=== PATIENT | male | born 1965 | race Caucasian/White ===

== ENCOUNTER 2016-05-27 23:44 | Emergency (ER) | payer MEDICAID ==
[~2016-05-27] VITALS: Ht 167.6 cm; Wt 70.8 kg
[~2016-05-27 23:44] MED LIST: CLON0.1T PO; METH10TA2 PO
[2016-05-27 23:52] VITALS: BP 137/85
== END 2016-05-28 02:15 | disposition home or self-care (01) ==
LOC: ER 23:50
DX: S01.112A Laceration without foreign body of left eyelid and periocular area, initial encounter (principal); S02.30XA Fracture of orbital floor, unspecified side, initial encounter for closed fracture; S09.90XA Unspecified injury of head, initial encounter; I10 Essential (primary) hypertension; B19.20 Unspecified viral hepatitis C without hepatic coma; F17.200 Nicotine dependence, unspecified, uncomplicated; V18.5XXA Pedal cycle passenger injured in noncollision transport accident in traffic accident, initial encounter; Y93.89 Activity, other specified; Y92.89 Other specified places as the place of occurrence of the external cause; Y99.8 Other external cause status
CPT/HCPCS: 12011; 70450; 70486; 99284; A4606; Z7610

== ENCOUNTER 2016-06-20 22:02 | Emergency (ER) | payer MEDICAID ==
[~2016-06-20] VITALS: Ht 175.3 cm; Wt 71.7 kg
[2016-06-20 22:26] VITALS: BP 136/86
== END 2016-06-20 22:50 | disposition left against medical advice (07) ==
LOC: ER 22:07
DX: Z53.21 Procedure and treatment not carried out due to patient leaving prior to being seen by health care provider (principal)
CPT/HCPCS: A4606; Z7610

== ENCOUNTER 2016-06-26 13:03 | Emergency (ER) | payer MEDICAID ==
[~2016-06-26] VITALS: Ht 165.1 cm; Wt 74.8 kg
[2016-06-26 13:24] VITALS: BP 165/88
[2016-06-26] MEDS ORDERED: CEPHALEXIN MONOHYDRATE 500 MG CAPSULE PO ONE ×2 (16:00→16:10)
[2016-06-26] MEDS ORDERED: SULFAMETH/TRIMETH 800/160 MG 1 UDTAB TABLET PO ONE ×2 (16:00→16:09)
[2016-06-26] MEDS ORDERED: HYDROCODONE/APAP 5/325MG 1 EACH TABLET PO ONE (16:00)
[2016-06-26] MEDS ORDERED: IBUPROFEN 600 MG TABLET PO ONE ×2 (16:00→16:10)
[2016-06-26] MEDS ORDERED: HYDROCODONE/APAP 5/325MG 1 EACH TABLET ONE (16:10)
== END 2016-06-26 17:56 | disposition home or self-care (01) ==
LOC: ER 13:06
DX: L03.116 Cellulitis of left lower limb (principal); F17.200 Nicotine dependence, unspecified, uncomplicated; B19.20 Unspecified viral hepatitis C without hepatic coma; Z59.0 Homelessness
CPT/HCPCS: 73590; 99284; A4606; Z7610

== ENCOUNTER 2016-10-23 19:34 | Inpatient (IN) | payer MEDICAID, OTHER ==
[~2016-10-23] VITALS: Ht 175.3 cm; Wt 68.5 kg
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
[2016-10-23] MEDS ORDERED: TDAP [DIPH/PERTUSSIS/TET] 0.5 ML VIAL IM ONE ×2 (19:49→20:00)
--- NOTE | 2016-10-23 19:55 | NUR ---
[employer] - OFFICER SHAW. ARRIVED AND IS SPEAKING TO THE PT.
--- NOTE | 2016-10-23 19:55 | NUR ---
PT LEFT FOR CT.
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
--- NOTE | 2016-10-23 20:13 | NUR ---
PT RETURNED FROM CT. UNABLE TO GET CT. PT THREATENED RADIOLOGY STAFF AND PULLED OFF BLOODY DRESSING AND THREATENED TO THROW BLOODY DRESSING AT RADIOLOGY STAFF.
--- NOTE | 2016-10-23 20:13 | NUR ---
LELE ROJASD AT THE BEDSIDE SPEAKING TO THE PT.
[2016-10-23] MEDS ORDERED: LORAZEPAM INJ 2 MG/ML VIAL ONE (20:14)
--- NOTE | 2016-10-23 20:18 | NUR ---
PT REC'D PRAFUL HASKINSP.
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
--- NOTE | 2016-10-23 20:20 | NUR ---
PT LEFT FOR CT VIA ODILIA WITH MYSELF AND MARY ANN VENTURA. PT IS CALM AND COOPERATIVE.
[2016-10-23 20:23] LABS: BASOPHILS # (AUTO) 0.2 /CMM (0.0-0.2); EOSINOPHILS # (AUTO) 0.1 /CMM (0.0-0.7); EOSINOPHILS % (AUTO) 1.4 % (0.0-6.0); HEMATOCRIT 39 % (39-51); HEMOGLOBIN 12.8 g/dL (13.5-17.5); LYMPHOCYTES # (AUTO) 3.5 /CMM (0.8-4.8); LYMPHOCYTES % (AUTO) 40.6 % (20.0-44.0); MEAN CORPUSCULAR HEMOGLOBIN 31 PG (26.0-33.0); MEAN CORPUSCULAR HGB CONC 33 g/dl (31.0-36.0); MEAN CORPUSCULAR VOLUME 94 fL (80-96); MONOCYTES # (AUTO) 0.8 /CMM (0.1-1.30); MONOCYTES % (AUTO) 9.7 % (2.0-12.0); NEUTROPHILS # (AUTO) 4.1 /CMM (1.8-8.9); NEUTROPHILS % (AUTO) 46.3 % (43.0-81.0); PLATELET COUNT (AUTO) 235 /CMM (150-450); RDW COEFFICIENT OF VARIATION 14.5 (11.5-15.0); RED BLOOD CELL COUNT(AUTO) 4.11 MIL/uL (4.5-6.0); WHITE BLOOD COUNT (AUTO) 8.7 K/uL (4.3-11.0)
[2016-10-23] MEDS ORDERED: LORAZEPAM INJ 2 MG/ML VIAL IV ONE (20:30)
[2016-10-23 20:31] LABS: CREATININE 0.7 mg/dL (0.6-1.3); POTASSIUM 3.5 mmol/L (3.5-5.1)
[2016-10-23 20:34] LABS: INR 1.13 (0.87-1.13); PROTHROMBIN TIME 11.9 SECS (9.5-12.7)
--- NOTE | 2016-10-23 20:41 | NUR ---
Emmie wagner in ED - 10/23/16 at 2045 by DIANELYS ENDORSED 4TH BAG OF POTASSIUM 10 MEQ TO LASHON SANCHEZ.
--- NOTE | 2016-10-23 20:41 | NUR ---
PT RETURNED FROM CT. PT CONNECTED TO THE MONITOR AND CONTINUOUS PULSE OX.
--- NOTE | 2016-10-23 20:43 | NUR ---
CT SCANS & XRAY WAS ABLE TO BE DONE AFTER ER GAVE PT MEDS. LASHON GARCIA & NACHO WAS ON HAND IN CT ROOM WELL.
[2016-10-23] MEDS ORDERED: LIDOCAINE 2%-EPI 1:100,000 30 ML VIAL ONE (20:44)
--- NOTE | 2016-10-23 20:50 | NUR ---
M DEGRASSE, ACNP IS AT THE BEDSIDE SUTURING.
--- NOTE | 2016-10-23 21:00 | NUR ---
PT'S O2 SAT DROPPED TO 87% PT PLACED ON 2L VIA NC. PT IS OBTUNED. RT CALLED. DR. BARR AT THE BEDSIDE.
--- NOTE | 2016-10-23 21:02 | NUR ---
SETTING UP FOR INTUBATION: DR. BARR AND Shanique SINGER, ACNP AT BEDSIDE. VS: 95 99% 131/75 18. PT IS ON 2L O2 VIA NC. 2103 BP- 126/82 HR - 99 O2 SAT- 98% ETOMIDATE 10 IVP - IV INFILTRATED. 5MG IN 2104 - BAGGING. 2105 IV STARTED IN RAC 18G 5MG ETOMIDATE IN IVP INTUBATING PT: 2106 HR-106 BP-126/82 R- 18 O2 - 99% ON 2L O2 VIA NC. 2107 - 10 MG ETOMIDATE IVP RAC 18G. BAGGING IN PROCESS 2108 - INTUBATING PT BP- 156/109 HR- 114 PT IS GAGGING. INTUBATION STOPPED. 2109 - PT INTUBATED. ETT 7.5 AND 25 AT THE LIP. POS COLOR CHANGE.
[2016-10-23] MEDS ORDERED: IV NS 0.9% 1,000 ML ONE ×2 (21:07→23:24)
[2016-10-23] MEDS ORDERED: IV SET PRIMARY PUMP SET 1 EA INFUS.SET MC ONE ×3 (21:07→23:25)
[2016-10-23] MEDS ORDERED: IV SET PRIMARY 1 EA INFUS.SET MC ONE (21:07)
[2016-10-23] MEDS ORDERED: PROPOFOL 100 ML IV ONE (21:07)
--- NOTE | 2016-10-23 21:14 | NUR ---
PT IS INTUBATED AND ON VENT WITH THE FOLLOWING SETTINGS: AC 12, TV 500, FIO2 100% PEEP 5.
--- NOTE | 2016-10-23 21:18 | NUR ---
M DEGRASSE, ACNP SUTURING.
--- NOTE | 2016-10-23 21:23 | NUR ---
PROPOFOL INCREASED TO 20 MCG/MIN.
--- NOTE | 2016-10-23 21:24 | NUR ---
CALLED , TRANSFERRED CALL TO
--- NOTE | 2016-10-23 21:28 | NUR ---
DR. BARR IS AT THE BEDSIDE WITH FLORENTIN ESTRADA.
--- NOTE | 2016-10-23 21:28 | NUR ---
M DEGRASSE, ACNP STILL SUTURING. LAC STILL BLEEDING.
--- NOTE | 2016-10-23 21:36 | NUR ---
CALLED NURSING SUP. FOR ICU BED
--- NOTE | 2016-10-23 21:42 | NUR ---
PT IS SUTURED. BLEEDING STOPPED.
[2016-10-23 21:43] VITALS: BP 118/72
--- NOTE | 2016-10-23 21:43 | NUR ---
PROPOFOL INCREASED TO 25MCG/MIN.
--- NOTE | 2016-10-23 21:46 | NUR ---
RT NOTE PT INTUBATED PER MD ORDER. 7.5 ETT 25 @ LIP. SETTINGS PRESCRIBED. BILATERAL CHEST RISE NOTED. VENT ALARMS SET PER PROTOCOL AND AUDIBLE. AMBU BAG AT BED SIDE. VENT PLUGGED IN TO RED OUTLET. PT SEDATED. NO DISTRESS NOTED. WILL CONTINUE TO MONITOR. Addendum: 10/23/16 at 2149 by NÉSTOR HANSON RT Amended: Links added.
--- NOTE | 2016-10-23 21:47 | NUR ---
STEWART CATH INSERTED.
--- NOTE | 2016-10-23 21:50 | NUR ---
URINE SAMPLE SENT TO LAB.
--- NOTE | 2016-10-23 21:58 | NUR ---
TAYLA PAGED, ABDIFATAH PEREZ TAP OUT OPERATOR
--- NOTE | 2016-10-23 22:20 | NUR ---
CALL NO [employer] WHEN PT IS AWAKE. CALL [phone]. ASK FOR OFFICER CARVER BEFORE 5PM.
--- NOTE | 2016-10-23 22:23 | NUR ---
IF PT'S STATUS CHANGES PLEASE CALL [employer].
[2016-10-23] MEDS ORDERED: PROPOFOL 100 ML IV PRN (22:30)
[2016-10-23] MEDS ORDERED: CEFAZOLIN 1 GM in IV D5W 50 ML IV ONE (22:30)
--- NOTE | 2016-10-23 22:35 | NUR ---
AUDITOR/QUALITY: RECEIVED ORALLY INTUBATED PT FROM ER VIA GURNEY. TOLERATING VENT SETTINGS ORDERED WT NO ACUTE DISTRESS. SEDATED ON DIPRIVAN AT 30MCG/KG/MIN WT BILAT. SOFT WRIST RESTRAINTS IN PLACE TO PREVENT POSSIBLE SELF-EXTUBATION. IV SITES INTACT AND PATENT WT NO INFILTRATION. NO EVIDENCE OF DISCOMFORT. PRESSURE DRESSING IN PLACE ON RIGHT EYEBROW LACERATION WT NO ACTIVE BLEEDING. UNABLE TO ASSESS RIGHT EYE/PUPIL DUE TO HEAD DRESSING. SR ON MONITOR. F/C PATENT AND INTACT DRAINING TEA COLORED URINE TO GRAVITY. HOB ELEVATED. SAFETY PRECAUTION NOTED.
--- NOTE | 2016-10-23 22:48 | NUR ---
ANCEF ENDORSED TO ICU NURSE. PT ALREADY IN ICU WHEN ANCEF WAS ORDERED.
[2016-10-23 23:00] VITALS: BP 131/86
[2016-10-23] MEDS ORDERED: ETOMIDATE 2 MG/ML VIAL IV ONE (23:00)
[2016-10-23 23:01] VITALS: BP 86/80
--- NOTE | 2016-10-23 23:04 | NUR ---
Received pt from ER intubated 7.5 T TUBE AND TAPED AT 24CM AT THE LIP, current setting are AC,12,500,+5,100%, VENT IS PLUGED INTO RED OUTLET, ALARMS ARE SET AND AUDIBLE, AMBUBAG AT BEDSIDE. Addendum: 10/23/16 at 2307 by LUISITO BOLDEN RT Amended: Links added.
[2016-10-23] MEDS ORDERED: SECONDARY IV SET 1 EA INFUS.SET MC ONE ×2 (23:06→23:35)
[2016-10-23] MEDS ORDERED: CEFAZOLIN 1 GM ONE (23:06)
[2016-10-23] MEDS ORDERED: IV D5W 50 ML IV ONE (23:06)
[2016-10-23] MEDS ORDERED: IV NS 0.9% 250 ML IV ONE (23:07)
[2016-10-23] MEDS ORDERED: IV NS 0.9% 1,000 ML IV PRN (23:14)
[2016-10-23 23:22] LABS: ABG BASE EXCESS -2.6 mmol/L; ABG OXYGEN SATURATION 99.4 % (92.0-98.5); ABG PCO2 57.9 mmHg (35.0-45.0); ABG PH 7.257 (7.350-7.450); ABG PO2 512.5 mmHg (75.0-100.0); AaDO2 142.6 mmHg; COHb 0.2 % (0.5-1.5); MetHb 0.5 % (0.0-1.5); O2Hb 98.7 % (94.0-97.0); SITE, ABG Right Radial
[2016-10-23 23:30] VITALS: BP 118/75
[2016-10-23] MEDS ORDERED: ACETAMINOPHEN 650 MG/SUPP.RECT RC PRN (23:30)
[2016-10-23] MEDS ORDERED: IV NS 0.9% 250 ML IV PRN (23:30)
[2016-10-23] MEDS ORDERED: ONDANSETRON HCL/PF 4 MG/2 ML VIAL IVP PRN (23:30)
[2016-10-23] MEDS ORDERED: MORPHINE SULFATE INJ 2 MG/ML DISP.SYRIN IV PRN (23:30)
[2016-10-23] MEDS: PROPOFOL 100 ML IV PRN (23:31)
[2016-10-23] MEDS ORDERED: IV D5W 100 ML IV ONE ×2 (23:33→23:35)
[2016-10-24] VITALS (30 sets, daily range): BP systolic 86–166; BP diastolic 70–102
[2016-10-24] MEDS ORDERED: CEFTRIAXONE 2 G VIAL ONE (00:01)
--- NOTE | 2016-10-24 00:15 | NUR ---
FIELD ADMINISTRATOR: [employer] DIVISION OFFICER ANNE DODSON CALLED AND UPDATED PT. STATUS. ALSO CONFIRMED THAT PT. IS HOMELESS.
[2016-10-24] MEDS: CEFTRIAXONE 2 G in IV D5W 100 ML IV SCH ×2 (00:31→23:32)
--- NOTE | 2016-10-24 01:15 | NUR ---
VENT SETTINGS WERE CHANGED POST ABG PER MD TO AC 16,550,+5,40% Addendum: 10/24/16 at 0116 by LUISITO BOLDEN RT Amended: Links added.
[2016-10-24] MEDS ORDERED: PROPOFOL 100 ML IV ONE ×2 (01:52→05:51)
[2016-10-24] MEDS: PROPOFOL 100 ML IV PRN ×10 (02:05→23:31)
[2016-10-24 05:02] LABS: BASOPHILS # (AUTO) 0.1 /CMM (0.0-0.2); BASOPHILS % (AUTO) 1.2 % (0.0-2.0); EOSINOPHILS # (AUTO) 0.1 /CMM (0.0-0.7); EOSINOPHILS % (AUTO) 0.8 % (0.0-6.0); HEMATOCRIT 33 % (39-51); HEMOGLOBIN 11.4 g/dL (13.5-17.5); LYMPHOCYTES # (AUTO) 3.3 /CMM (0.8-4.8); LYMPHOCYTES % (AUTO) 40.2 % (20.0-44.0); MEAN CORPUSCULAR HEMOGLOBIN 33 PG (26.0-33.0); MEAN CORPUSCULAR HGB CONC 35 g/dl (31.0-36.0); MEAN CORPUSCULAR VOLUME 95 fL (80-96); MONOCYTES # (AUTO) 0.6 /CMM (0.1-1.30); MONOCYTES % (AUTO) 7.1 % (2.0-12.0); NEUTROPHILS # (AUTO) 4.1 /CMM (1.8-8.9); NEUTROPHILS % (AUTO) 50.7 % (43.0-81.0); PLATELET COUNT (AUTO) 166 /CMM (150-450); RDW COEFFICIENT OF VARIATION 15.5 (11.5-15.0); RED BLOOD CELL COUNT(AUTO) 3.49 MIL/uL (4.5-6.0); WHITE BLOOD COUNT (AUTO) 8.1 K/uL (4.3-11.0)
[2016-10-24 05:12] LABS: ALBUMIN 2.8 g/dL (3.4-5.0); BILIRUBIN,TOTAL 0.5 mg/dL (0.2-1.0); CALCIUM, SERUM 7.4 mg/dL (8.5-10.1); CREATININE 0.5 mg/dL (0.6-1.3); MAGNESIUM 1.6 mg/dL (1.8-2.4); PHOSPHORUS 3.4 mg/dL (2.5-4.9); POTASSIUM 3.2 mmol/L (3.5-5.1); TOTAL PROTEIN, SERUM 7.1 g/dL (6.4-8.2)
[2016-10-24 05:17] LABS: THYROID STIMULATING HORMONE 2.435 uIU/mL (0.358-3.74)
--- NOTE | 2016-10-24 06:50 | NUR ---
CONTRACT AGENT: CURRENTLY ON DIPRIVAN AT 55MCG/KG/MIN. BILAT. SOFT WRIST RESTRAINTS IN PLACE FOR EPISODES OF TRYING TO PULL LIFE SUSTAINING TUBES. WT GOOD CIRCULATION AND NO SKIN BREAKDOWN WHEN RESTRAINTS WERE RELEASED AND CHECKED. TOLERATING IVF HYDRATION WT GOOD URINE OUTPUT. SAFETY PRECAUTION NOTED AT ALL TIMES.
[2016-10-24] MEDS ORDERED: IV SET PRIMARY PUMP SET 1 EA INFUS.SET MC ONE ×3 (07:59→21:15)
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
--- NOTE | 2016-10-24 10:31 | NUR ---
HYDRAULIC TESTER NOTE 0720: Received patient sedated. With ETT to vent, tolerated settings at this time. With PIVs intact. On Diprivan @ 55, noted with kicking, will titrate for sedation and comfort. With Gaitan cath intact, noted with lio colored urine drained to BSD. TRAFFIC INVESTIGATOR restraints on to prevent pulling out invasive tubings. With head dressing intact, still noted with both eyes swollen, right eye unable to see pupil for severe periorbital edema. Wound nurse came but unable to turn at this time secondary to being combative. 0830: Tried to lower Diprivan to 40 but noted patient being combative and does not cooperate, placed Diprivan back to 70mcg. CN spoke with Dr. Holt and obtained order for repeat CT head stat. 0930: Patient back from, CT, no any changes during transport. VSS remained stable. 1020: No new bleeding seen from repeat CT, awaiting MDs rounds.
[2016-10-24 10:37] LABS: ABG BASE EXCESS -2.7 mmol/L; ABG OXYGEN SATURATION 98.1 % (92.0-98.5); ABG PH 7.396 (7.350-7.450); ABG PO2 136.4 mmHg (75.0-100.0); AaDO2 107.4 mmHg; MetHb 0.6 % (0.0-1.5); O2Hb 96.5 % (94.0-97.0); PEEP,BG 5 cm H2O; SITE, ABG Right Radial; VT, ABG 550 mL
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
[2016-10-24] MEDS ORDERED: SECONDARY IV SET 1 EA INFUS.SET MC ONE ×2 (11:35→13:47)
[2016-10-24] MEDS: Magnesium 1GM/D5W 100ML PREMIX 100 ML IV SCH ×2 (11:51→12:34)
[2016-10-24] MEDS: POTASSIUM CL. PREMIX PERIPHER. 50 ML IV SCH ×4 (11:51→14:58)
[2016-10-24] MEDS ORDERED: ETOMIDATE 2 MG/ML VIAL IV ONE (12:01)
[2016-10-24] MEDS: ALBUTEROL HALF STRENGTH 1.25 MG/3 ML VIAL.NEB NEB SCH ×4 (13:30→23:41)
[2016-10-24] MEDS: IPRATROPIUM NEB FS 0.5 MG/2.5 ML AMPUL.NEB NEB SCH ×4 (13:30→23:41)
[2016-10-24] MEDS: IV D5/ 0.9% NACL 1,000 ML IV PRN (13:53)
[2016-10-24] MEDS ORDERED: AZITHROMYCIN 500 MG in IV D5W 250 ML IV SCH (14:00)
[2016-10-24] MEDS: LORAZEPAM INJ 2 MG/ML VIAL IV PRN (19:58)
--- NOTE | 2016-10-24 20:00 | NUR ---
LOUVER DOOR ASSEMBLER: GIVEN ATIVAN ORDERED FOR TRYING TO SIT UP AND KICKING. CONTINUE ON DIPRIVAN AT 100MCG/KG/MIN. BILAT. SOFT WRIST RESTRAINTS IN PLACE FOR EPISODES OF TRYING TO PULL TUBINGS. NO NEW SKIN BREAKDOWN AND WT GOOD CIRCULATION WHEN RESTRAINTS WERE RELEASED. WILL CONTINUE TO MONITOR.
--- NOTE | 2016-10-24 20:00 | NUR ---
RT PATIENT REC'D ON [facility] VENT WITH SETTINGS SET PER . VENT ALARMS CHECKED + AUDIBLE. CUFF PRESSURE CHECKED DESIZING MACHINE OFFBEARER. VENT PLUGGED INTO RED OUTLET. B/S DIM COARSE. SX'D WITH JEFF/MD STILEST PALE SEMITHICK SECRETIONS. AMBU BAG AT [facility]. CONT CURRENT PLAN OF RESP CARE. Addendum: 10/24/16 at 1999 by LUISITO BOLDEN RT Amended: Links added.
--- NOTE | 2016-10-24 20:30 | NUR ---
PATTERN LEASE INSPECTOR: REASSESSED AFTER GIVEN ATIVAN WT GOOD EFFECT. PT CALM AT THIS TIME. VS IMPROVED. WILL CONTINUE TO MONITOR.
[2016-10-25] VITALS (42 sets, daily range): BP systolic 137–183; BP diastolic 85–157
[2016-10-25] MEDS: PROPOFOL 100 ML IV PRN ×3 (01:25→05:49)
[2016-10-25] MEDS: LORAZEPAM INJ 2 MG/ML VIAL IV PRN ×4 (03:03→20:30)
--- NOTE | 2016-10-25 03:20 | NUR ---
SUPERVISOR AGRICULTURAL EDUCATION: REASSESSMENT DONE AFTER ATIVAN ADMINISTRATION WT GOOD EFFECT. NO EPISODE OF RESTLESSNESS AT THIS TIME. SAFETY PRECAUTION NOTED AT ALL TIMES.
[2016-10-25] MEDS: ALBUTEROL HALF STRENGTH 1.25 MG/3 ML VIAL.NEB NEB SCH ×6 (03:35→23:10)
[2016-10-25] MEDS: IPRATROPIUM NEB FS 0.5 MG/2.5 ML AMPUL.NEB NEB SCH ×6 (03:35→23:10)
[2016-10-25] MEDS: IV D5/ 0.9% NACL 1,000 ML IV PRN ×2 (03:42→16:02)
[2016-10-25 04:50] LABS: BASOPHILS # (AUTO) 0.1 /CMM (0.0-0.2); BASOPHILS % (AUTO) 1.1 % (0.0-2.0); EOSINOPHILS # (AUTO) 0.1 /CMM (0.0-0.7); EOSINOPHILS % (AUTO) 1.7 % (0.0-6.0); HEMATOCRIT 35 % (39-51); HEMOGLOBIN 11.8 g/dL (13.5-17.5); LYMPHOCYTES # (AUTO) 1.5 /CMM (0.8-4.8); LYMPHOCYTES % (AUTO) 24.7 % (20.0-44.0); MEAN CORPUSCULAR HEMOGLOBIN 32 PG (26.0-33.0); MEAN CORPUSCULAR HGB CONC 34 g/dl (31.0-36.0); MEAN CORPUSCULAR VOLUME 95 fL (80-96); MONOCYTES # (AUTO) 0.5 /CMM (0.1-1.30); MONOCYTES % (AUTO) 8.7 % (2.0-12.0); NEUTROPHILS # (AUTO) 3.8 /CMM (1.8-8.9); NEUTROPHILS % (AUTO) 63.8 % (43.0-81.0); PLATELET COUNT (AUTO) 135 /CMM (150-450); RDW COEFFICIENT OF VARIATION 15.1 (11.5-15.0); RED BLOOD CELL COUNT(AUTO) 3.68 MIL/uL (4.5-6.0); WHITE BLOOD COUNT (AUTO) 5.9 K/uL (4.3-11.0)
[2016-10-25 05:09] LABS: CALCIUM, SERUM 7.8 mg/dL (8.5-10.1); CREATININE 0.4 mg/dL (0.6-1.3); PHOSPHORUS 2.2 mg/dL (2.5-4.9); POTASSIUM 3.7 mmol/L (3.5-5.1)
--- NOTE | 2016-10-25 06:04 | NUR ---
WHILE CHANGING ET TUBE FASTENER NOTICED WOUND ON PATIENTS RIGHT CHICK, RN WAS NOTIFIED AND PICTURE WAS TAKEN, A PROTECTIVE DRESSING WAS PLACED BEFORE NEW TUBE FASTENER. Addendum: 10/25/16 at 0606 by LUISITO BOLDEN RT Amended: Links added.
--- NOTE | 2016-10-25 06:15 | NUR ---
SEAMSTRESS FITTER: TOLERATING VENT SETTINGS ORDERED. NO ACUTE DISTRESS, NO EVIDENCE OF DISCOMFORT. REMAINED SEDATED ON DIPRIVAN AT 100MCG/KG/MIN WT BILAT. SOFT WRIST RESTRAINTS IN PLACE FOR EPISODES OF TRYING TO PULL TUBINGS. PALPABLE PULSES WT NO SKIN BREAKDOWN. TOLERATING IVF WT GOOD URINE OUTPUT. ETT TUBE FASTENER SECURED WT NO ACTIVE BLEEDING NOTED ON SKIN TEAR ON RIGHT CHEEK. WILL ENDORSE TO DAY SHIFT FOR CONTINUITY OF CARE.
--- NOTE | 2016-10-25 07:50 | NUR ---
CONSUMER RELATIONS COMPLAINT CLERK: pt.is sedated with 100mcg/kg/m Diprivan gtt, reactive for pain stimuli, on wrists restraints, was strongly agitating on 10/24 with sedation vacation on 40 mcg Diprivan, unable to check pupils reaction d/t L.periorbital edema,R.dressing band, O2sat. over 94%, SR, SBP 120-150, plan: SIMV mode today, head dressing is intact, no acute bleeding
[2016-10-25] MEDS ORDERED: IV SET PRIMARY PUMP SET 1 EA INFUS.SET MC ONE (08:56)
--- NOTE | 2016-10-25 09:45 | NUR ---
ENGLISH FACULTY MEMBER: sedation is off now, pt.is reactive for pain stimuli now, RR 14-18, o2sat. over 94%, SR, , RT is in room, updated, started SIMV mode, continue monitoring
--- NOTE | 2016-10-25 10:15 | NUR ---
ASSOCIATE PROFESSOR OF MANAGEMENT: pt.is more reactive now, hands following commands, but without strong equal reaction, coughing/suctioned, instructed: don't bite ETT, on SIMV mode, SR, O2sat. WNL, updated
--- NOTE | 2016-10-25 10:36 | NUR ---
PETROLEUM REFINERY WORKER: is in room, reevaluated pt., pt.is more reactive, arms/legs activity+, slowly reactive for voice commands, ABG in 20-30min
--- NOTE | 2016-10-25 11:15 | NUR ---
INTERACTIVE WEB DEVELOPER: is in room, updated with pt.current condition, SIMV vent.mode, VS, neuro status reaction, plan: ABG, air traffic instructor reevaluation
[2016-10-25 11:28] LABS: ABG BASE EXCESS 2.2 mmol/L; ABG OXYGEN SATURATION 98.7 % (92.0-98.5); ABG PCO2 30.8 mmHg (35.0-45.0); ABG PH 7.517 (7.350-7.450); ABG PO2 163.8 mmHg (75.0-100.0); COHb 1.2 % (0.5-1.5); MetHb 0.4 % (0.0-1.5); O2Hb 97.1 % (94.0-97.0); PEEP,BG 5 cm H2O; SITE, ABG Right Radial; VENT MODE, BG SIMV 4 PSV 12
--- NOTE | 2016-10-25 11:30 | NUR ---
pt extubated per md order. zero distress noted b/s equal. pt on room air spo2 98% rn aware.
--- NOTE | 2016-10-25 11:45 | NUR ---
MULTIPLE TUBE WINDING MACHINE OPERATOR: pt.is extubated after ABG/neurostatus evaluation per , SR, SBP 140-160, O2 sat. 94-98%, no0 c/o now, able to speak, swallow ice chips
[2016-10-25] MEDS ORDERED: MORPHINE SULFATE INJ 4 MG/ML DISP.SYRIN IV PRN (12:00)
[2016-10-25] MEDS ORDERED: NEUTRA PHOS 1 POWD.PACKET PO ONE (12:00)
--- NOTE | 2016-10-25 12:15 | NUR ---
CONDITIONING COACH: pt.is asking for "Metadone", restless/continue restraints, c/o general pain, tremor, grimacing, Morphine 2 mg IV given
--- NOTE | 2016-10-25 12:30 | NUR ---
DIE TRY OUT WORKER STAMPING: [facility] [phone] was notified: pt.is extubated and awake now
--- NOTE | 2016-10-25 12:45 | NUR ---
MEND WORKER: pt.is strong agitating, aggressive, O2 sat. 94-98%, SBP up to 160-170, HR 90-110, Ativan 1mg IV given
--- NOTE | 2016-10-25 12:50 | NUR ---
PERSONAL INJURY SPECIALIST: RODRIGO Ma is in room, updated, pt.is agitating, fighting, unable to answer prop., restless, able to SBP 150-170, see new orders
[2016-10-25] MEDS: AMLODIPINE BESYLATE 10 MG TABLET PO SCH (13:00)
--- NOTE | 2016-10-25 13:15 | NUR ---
REHAB/PRE VOCATIONAL COUNSELOR: pt.is on wrists restraints/protective measures, hallucinated, restless, agitating, Anil, CANOE MAKER was notified/updated charge nurse, got Haldol 5mg IVx one, Benadryl 25mg IM x one order. Hydralazine Iv dose given, unable to give Norvasc PO meds
[2016-10-25] MEDS: hydrALAZINE HCL IV 20 MG VIAL IV PRN ×3 (13:18→21:10)
[2016-10-25] MEDS ORDERED: HALOPERIDOL LACTATE INJ 5 MG/ML VIAL IM ONE (13:30)
[2016-10-25] MEDS ORDERED: diphenhydrAMINE HCL 50 MG/ML VIAL IV ONE (13:30)
[2016-10-25] MEDS ORDERED: diphenhydrAMINE HCL 50 MG/ML VIAL IM ONE (13:30)
--- NOTE | 2016-10-25 15:25 | NUR ---
SENIOR INVESTIGATOR: O2sat. 94-98%, ST 100-120, SBP 150-160, unable to give PO BP meds, Hydralazine given, little more rest now, but still needs restraints, unable to follow commands, disoriented
--- NOTE | 2016-10-25 16:25 | NUR ---
ICE CUTTER: pt.is agitating, restless, disoriented, combative, ST, high BP, pt.protective measures are active, O2 sat. WNL, Ativan 1mg IV x one given
[2016-10-25] MEDS: MORPHINE SULFATE INJ 4 MG/ML DISP.SYRIN IV PRN (17:46)
--- NOTE | 2016-10-25 17:50 | NUR ---
ELECTRICAL APPRENTICE: pt.is restless, agitating, grimacing, ST 120-130, BP 154/100, O2 sat. WNL, combative, strong muscles activity, disoriented, was oriented for time/place/POC, said: feels general, wounds strong pain, unable to follow commands, attempted to kick staff, on wrists restraints, skin is intact, restraints safety measures are active, got IV Hydralazine dose
--- NOTE | 2016-10-25 20:00 | NUR ---
PATIENT ADMITTING CLERK NOTES RECEIVED PT IN BED, IN BILATERAL SOFT WRIST RESTRAINTS. PT IS AGITATED, RESTLESS AND TOSSING LEGS OUT OF BED. PT IS CONFUSED AND DISORIENTED WITH OCCASIONAL HALLUCINATIONS. NOTED WITH HEAD INJURY ON RIGHT LATERAL HEAD WITH DRESSING IN PLACE. NO BLEEDING NOTED. TELE READS ST IN 120s. ON ROOM AIR, DOLLY WELL. IV SITES AT LEFT HAND AND RIGHT AC, RUNNING D5NS AT 75 ML/HR. STEWART CATH PLACE WITH POLYURIA AND HEMATURIA, YELLOW RED COLOR. SAFETY MEASURES RENDERED, HOB ELEVATED. RESTRAINTS RELEASED FOR ROM UNDER SUPERVISION.
[2016-10-25] MEDS: CEFTRIAXONE 1 G in IV D5W 50 ML IV SCH (22:42)
[2016-10-25] MEDS ORDERED: OLANZAPINE 10 MG VIAL IM ONE ×2 (23:22→23:30)
--- NOTE | 2016-10-25 23:30 | NUR ---
PRE SALES TECHNICAL ENGINEER NOTES PT REMAINS EXTREMELY AGITATED. CONTACTED DR PEREZ AND MADE AWARE. NEW ORDER FOR ZYPREXA 10MG IM RECEIVED.
[2016-10-26] VITALS (47 sets, daily range): BP systolic 126–188; BP diastolic 69–137
[2016-10-26] MEDS: MORPHINE SULFATE INJ 4 MG/ML DISP.SYRIN IV PRN ×3 (01:08→22:38)
[2016-10-26] MEDS: hydrALAZINE HCL IV 20 MG VIAL IV PRN ×4 (01:08→21:08)
[2016-10-26] MEDS: LORAZEPAM INJ 2 MG/ML VIAL IV PRN ×3 (02:00→21:21)
[2016-10-26] MEDS: IPRATROPIUM NEB FS 0.5 MG/2.5 ML AMPUL.NEB NEB SCH ×6 (03:19→23:04)
[2016-10-26] MEDS: ALBUTEROL HALF STRENGTH 1.25 MG/3 ML VIAL.NEB NEB SCH ×6 (03:19→23:04)
[2016-10-26 05:21] LABS: CALCIUM, SERUM 8.4 mg/dL (8.5-10.1); CREATININE 0.5 mg/dL (0.6-1.3); PHOSPHORUS 2.4 mg/dL (2.5-4.9); POTASSIUM 2.9 mmol/L (3.5-5.1)
[2016-10-26] MEDS: IV D5/ 0.9% NACL 1,000 ML IV PRN ×2 (06:12→21:09)
--- NOTE | 2016-10-26 06:12 | NUR ---
POULTRY FEED SUPERVISOR NOTES PT MANAGED TO PULL OUT LEFT HAND IV WHILE RESTRAINED. MINIMAL BLEEDING.
[2016-10-26] MEDS: AMLODIPINE BESYLATE 10 MG TABLET PO SCH (07:56)
[2016-10-26] MEDS ORDERED: POTASSIUM CHLORIDE 20 MEQ TAB.PRT.SR PO ONE (08:30)
[2016-10-26] MEDS: PANTOPRAZOLE 40 MG TABLET.DR PO SCH (08:52)
[2016-10-26] MEDS: CLONIDINE HCL 0.1 MG TABLET PO SCH (08:52)
[2016-10-26] MEDS: MUPIROCIN OINT 2% 22 GM TUBE SCH ×2 (09:38→21:09)
--- NOTE | 2016-10-26 10:00 | NUR ---
UNBUNDLER PATIENT BECAME AGITATED, MEDIATIONS TO CONTROL AGITATION GIVEN. ATIVAN 1 MG IV GIVEN AT FIRST BUT PATIENT STILL RESTLESS AND KICKING THE SITTER, ZYPREXA ORDERED IM ONE DOSE MONITORED CLOSELY
[2016-10-26] MEDS: POTASSIUM CHLORIDE 20 MEQ TAB.PRT.SR PO SCH ×3 (10:09→12:32)
[2016-10-26] MEDS ORDERED: K PHOS NEUTRAL 250 MG TABLET PO ONE (10:30)
[2016-10-26] MEDS ORDERED: OLANZAPINE 10 MG VIAL IM ONE ×2 (11:00→23:37)
--- NOTE | 2016-10-26 11:01 | NUR ---
RT MED NOTE HHN MED HELD AT THIS TIME. HR>135. RN AWARE. PT AWAKE, IN NO RESP DISTRESS.
[2016-10-26] MEDS: HYDROCODONE/APAP 10/325MG 1 EA TABLET PO PRN (12:03)
--- NOTE | 2016-10-26 12:37 | NUR ---
PT AGITATED, HYPERTENSIVE, HALLUCINATING, THRASHING ABOUT WITH SITTER AND WRIST RESTRAINTS. HAS BEEN GIVEN MORPHINE AND NORCO FOR PRESUMED METHADONE WITHDRAWL, APRESOLINE FOR BP 170/115, ZYPREXA AND ATIVAN FOR AGITATED HALUCINATIONS AND THRASHING ALL TO NO AVAIL. MULTIPLE D/W KEYCASE ASSEMBLER ZAY. SEE ORDERS
[2016-10-26] MEDS ORDERED: diphenhydrAMINE HCL 50 MG/ML VIAL IM ONE (13:00)
[2016-10-26] MEDS ORDERED: HALOPERIDOL LACTATE INJ 5 MG/ML VIAL IM ONE (13:00)
[2016-10-26] MEDS: LORAZEPAM 1 MG TABLET PO SCH ×2 (16:00→21:08)
[2016-10-26] MEDS: BENZTROPINE MESYLATE (1 MG) 1 MG TABLET PO SCH (16:00)
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
--- NOTE | 2016-10-26 19:30 | NUR ---
RN INITIAL NOTES RECEIVED PT AWAKE ON BED, A/O X1 ONLY, CONFUSED, ON BILATERAL WRIST RESTRAINTS FOR SAFETY (PULLING LINES, GETTING OUT OF BED). ON ROOM AIR SATURATING WELL. CURRENTLY SINUS TACH ON THE MONITOR, HR 110-120'S. STEWART CATH INTACT. RIGHT AC 18G HAS D5NS @ 75MLS/HR, FLUSHED AND PATENT, NO S/S OF INFILTRATION/INFECTION, DRESSING CDI. BED LOW AND LOCKED, SIDERAILS UP. SITTER AT BEDSIDE. WILL CLOSELY MONITOR
[2016-10-26] MEDS ORDERED: IV SET PRIMARY PUMP SET 1 EA INFUS.SET MC ONE (21:01)
[2016-10-26] MEDS: HALOPERIDOL 5 MG TABLET PO SCH (21:08)
--- NOTE | 2016-10-26 21:16 | NUR ---
RN NOTES PT REMAINS AGITATED, REFUSED TO TAKE SCHEDULED HALDOL 5MG PO AND ATIVAN 1MG PO. WILL ADMINISTER PRN ATIVAN IV INSTEAD.
[2016-10-26] MEDS: CEFTRIAXONE 1 G in IV D5W 50 ML IV SCH (22:39)
--- NOTE | 2016-10-26 23:00 | NUR ---
RN NOTES DR PEREZ AND CORI WALLACE ARE IN THE UNIT TO ASSESS THE PATIENT. NOTIFIED DR PEREZ THAT PATIENT REFUSED HIS PO ATIVAN AND PO HALDOL. PER MD, CHANGE PO ATIVAN TO IV ROUTE INSTEAD. HE ORDERED A ONE TIME ZYPREXA 10MG IM TO BE GIVEN NOW. ALSO, HE ORDERED FOR COLD COMPRESS TO BE APPLIED OVER PATIENT'S SWOLLEN RIGHT EYE. AMMONIA LEVEL IS TO BE DRAWN IN AM WELL.
[2016-10-26] MEDS ORDERED: LORAZEPAM INJ 2 MG/ML VIAL ONE (23:42)
[2016-10-26] MEDS: LORAZEPAM INJ 2 MG/ML VIAL IV SCH (23:47)
[2016-10-27] VITALS (24 sets, daily range): BP systolic 102–172; BP diastolic 67–120
[2016-10-27] MEDS ORDERED: OLANZAPINE 10 MG VIAL IM ONE
[2016-10-27] MEDS: ALBUTEROL HALF STRENGTH 1.25 MG/3 ML VIAL.NEB NEB SCH ×6 (02:04→23:30)
[2016-10-27] MEDS: IPRATROPIUM NEB FS 0.5 MG/2.5 ML AMPUL.NEB NEB SCH ×6 (02:04→23:30)
[2016-10-27 04:49] LABS: CALCIUM, SERUM 8.6 mg/dL (8.5-10.1); CREATININE 0.5 mg/dL (0.6-1.3); PHOSPHORUS 3.1 mg/dL (2.5-4.9); POTASSIUM 3.3 mmol/L (3.5-5.1)
[2016-10-27] MEDS: HALOPERIDOL 5 MG TABLET PO SCH ×3 (05:00→22:16)
[2016-10-27] MEDS: hydrALAZINE HCL IV 20 MG VIAL IV PRN (05:03)
[2016-10-27] MEDS: MORPHINE SULFATE INJ 4 MG/ML DISP.SYRIN IV PRN (05:03)
[2016-10-27] MEDS: LORAZEPAM INJ 2 MG/ML VIAL IV PRN (05:53)
--- NOTE | 2016-10-27 06:45 | NUR ---
RN CLOSING NOTES PT REMAINS TO HAVE PERIODS OF RESTLESSNESS AND CONFUSION. ALL DUE MEDS GIVEN, AM CARE PROVIDED. WILL ENDORSE CONTINUITY OF CARE TO AM RN
--- NOTE | 2016-10-27 07:39 | NUR ---
INITIAL CONTRACTS OFFICER NOTE RCVD PT SLEEPING IN BED EASILY AROUSED TO NAME/TOUCH. SHOWING NO S/O DISTRESS. ST ON TELE. BREATHING WELL ON RA SAT 100%. STEWART DRAINING CLOUDY,CRANBERRY COLORED URINE. RIGHT AC #18 C/D/I/PATENT. NO S/O INFILTRATION OR PHLEBITIS OBSERVED IVF INFUSING. PT APPEARS CALM AT THIS TIME. SITTER AT BEDSIDE FOR SAFETY. BILATERAL SOFT WRIST RESTRAINTS IN PLACE. CIRCULATION CHECKS PERFORMED. WILL CONTINUE TO MONITOR FOR SAFETY AND COMFORT. CALL LIGHT WITHIN REACH. BED IN LOW AND LOCKED POSITION.
[2016-10-27] MEDS: CLONIDINE HCL 0.1 MG TABLET PO SCH (08:41)
[2016-10-27] MEDS: BENZTROPINE MESYLATE (1 MG) 1 MG TABLET PO SCH ×3 (08:41→16:16)
[2016-10-27] MEDS: LORAZEPAM INJ 2 MG/ML VIAL IV SCH ×2 (08:42→16:16)
[2016-10-27] MEDS: HYDROCODONE/APAP 10/325MG 1 EA TABLET PO PRN ×2 (08:42→15:17)
[2016-10-27] MEDS: AMLODIPINE BESYLATE 10 MG TABLET PO SCH (08:42)
[2016-10-27] MEDS: PANTOPRAZOLE 40 MG TABLET.DR PO SCH (08:42)
[2016-10-27] MEDS: MUPIROCIN OINT 2% 22 GM TUBE SCH ×2 (08:45→22:16)
[2016-10-27] MEDS ORDERED: HALOPERIDOL LACTATE INJ 5 MG/ML VIAL IM PRN (10:00)
--- NOTE | 2016-10-27 11:05 | NUR ---
NIDHI and economic development manager LASHON Spencer met with pt. bedside. Pt. continues to be confused. SW inquired with pt. if she can call his brother Dejon and if he has a number to give to SW. Pt. attempted to give SW his brother's Dejon's number but SW was unable to comprehend since pt. was mumbling. SW to attempt calling pt's brother Dejon's number that is located on the pt's face sheet. SW called pt's brother Dejon and left him a voicemail message requesting a call back.
--- NOTE | 2016-10-27 11:29 | NUR ---
SENIOR MOBILE APPLICATION DEVELOPER NOTE PT MORE AWAKE AND ALERT PROVIDED BROTHER AND DAD'S PHONE # [phone] AND [phone] RESPECTIVELY. PT STATES THAT HE TAKES METHADONE 50MG DISPENSED BY [facility] [phone]. CLINIC CALLED SPOKE WITH MEY WHO VERIFIED PT'S METHADONE DOSE. CLINIC'S INFORMATION GIVEN TO [facility] TO VERIFY DOSAGE.
[2016-10-27] MEDS ORDERED: POTASSIUM CHLORIDE 20 MEQ TAB.PRT.SR PO ONE (11:30)
[2016-10-27] MEDS: METHADONE HCL 10 MG TABLET PO SCH (12:08)
[2016-10-27] MEDS: IV D5/ 0.9% NACL 1,000 ML IV PRN (13:12)
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
--- NOTE | 2016-10-27 18:25 | NUR ---
ICU TRANSFER NOTE REPORT CALLED TO LASHON MART IN MED-SURG UNIT. PT WILL GO INTO ROOM 320 BY BED. PT'S FAMILY AT BEDSIDE INFORMED OF TRANSFER. Addendum: 10/27/16 at 1827 by DAYANA CLEMENTS RN PT'S BELONGINGS TRANSPORTED WITH PT.
--- NOTE | 2016-10-27 18:55 | NUR ---
AM RN NOTE Received patient from ICU via bed as accompanied by ICU staff. Pt sleeping comfortably in his bed, no acute distress noted. No SOB noted resp even and non-labored. IV site intact and patent. Jaya restraints in place, 1:1 sitter at bedside. Bed in low locked position. Will continue to monitor and endorse care to next shift.
--- NOTE | 2016-10-27 18:56 | NUR ---
TRANSFER NOTE PT TRANSFERRED IN STABLE CONDITION SHOWING NO S/O DISTRESS OR PAIN. PT'S FAMILY AT BEDSIDE. SITTER IN ROOM FOR SAFETY. RESTRAINTS IN PLACE.
--- NOTE | 2016-10-27 20:00 | NUR ---
ms/rn opening notes patient received in bed, hob elevated.asleep but arousable and can verbalize needs. no s/s of sob or distress at this time. will continue to monitor. family came for visit. vital signs check 120/73, pulse 71, r- 20 o2 sat 98% temperature 97.5
[2016-10-27] MEDS: CEFTRIAXONE 1 G in IV D5W 50 ML IV SCH (22:16)
--- NOTE | 2016-10-27 22:37 | NUR ---
ms/rn notes patient family called aand inform will see patient tomorrow. patient verbalized need "im thirsty" provided fluids. iv atb administered. on one on one sitter, abkle to take po med w/ assistance. will continue to monitor.
[2016-10-28] MEDS: LORAZEPAM INJ 2 MG/ML VIAL IV PRN (00:22)
[2016-10-28] MEDS: LORAZEPAM INJ 2 MG/ML VIAL IV SCH ×4 (01:49→23:47)
[2016-10-28] MEDS: ALBUTEROL HALF STRENGTH 1.25 MG/3 ML VIAL.NEB NEB SCH ×6 (03:30→23:18)
[2016-10-28] MEDS: IPRATROPIUM NEB FS 0.5 MG/2.5 ML AMPUL.NEB NEB SCH ×6 (03:30→23:18)
[2016-10-28] MEDS: HALOPERIDOL 5 MG TABLET PO SCH ×3 (04:43→20:59)
[2016-10-28] MEDS: IV D5/ 0.9% NACL 1,000 ML IV PRN ×2 (04:54→18:45)
--- NOTE | 2016-10-28 06:20 | NUR ---
ms/rn closing notes patient in bed, asleep but arousable. can verbalize needs. require 11 assistance and restrain soft release as patient pulls iv and safety measures. being monitored for any s/s of behavior changes and distress. will endorse to am rn regarding plan of care. prefers to have tv on to distract self andcall lights within reach, provide snacks and fluids.
[2016-10-28 07:44] VITALS: BP 132/86
[2016-10-28 07:51] LABS: CALCIUM, SERUM 8.3 mg/dL (8.5-10.1); CREATININE 0.6 mg/dL (0.6-1.3); POTASSIUM 3.6 mmol/L (3.5-5.1)
[2016-10-28 08:00] VITALS: BP 132/86
--- NOTE | 2016-10-28 08:07 | NUR ---
MS/RN NOTES RECEIVED PT ASLEEP IN BED, EASILY AWAKENS. SITTER AT BEDSIDE. SOFT WRIST RESTRAINS BILATERALLY IN PLACE. ON ROOM AIR, BREATHING EVEN AND UNLABORED. IV ACCESS ON RIGHT AC PATENT AND INTACT WITH IVF OF D5 NS @ 75ML/HR IN INFUSING WELL. BED IN LOW POSITION AND LOCKED. CALL LIGHT IN REACH WITH SIDE RAILS UP APPROPRIATE. WILL MAINTAIN ALL SAFETY MEASURES AND WILL CONTINUE TO MONITOR PT ACCORDINGLY.
[2016-10-28] MEDS: PANTOPRAZOLE 40 MG TABLET.DR PO SCH (08:45)
[2016-10-28] MEDS: METHADONE HCL 10 MG TABLET PO SCH (08:46)
[2016-10-28] MEDS: AMLODIPINE BESYLATE 10 MG TABLET PO SCH (08:47)
[2016-10-28] MEDS: BENZTROPINE MESYLATE (1 MG) 1 MG TABLET PO SCH ×3 (08:47→17:01)
[2016-10-28] MEDS: CLONIDINE HCL 0.1 MG TABLET PO SCH (08:48)
[2016-10-28] MEDS: MUPIROCIN OINT 2% 22 GM TUBE SCH ×2 (08:48→21:00)
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
[2016-10-28 16:00] VITALS: BP_SYST 126; BP_SYST 130; BP_DIAS 74; BP_DIAS 78
--- NOTE | 2016-10-28 19:13 | NUR ---
MS/RN NOTES PATIENT AWAKE IN BED WITH SISTER AT BEDSIDE. ALERT AND ORIENTED X1-2, CONFUSED AND RESTLESS ON AND OFF THROUGHOUT THE DAY. PT CONTINUES ON 1:1 SITTER.. B/L SOFT WRIST RESTRAINS IN PLACE. ON ROOM AIR, BREATHING EVEN AND UNLABORED. IV ACCESS ON RIGHT AC PATENT AND INTACT WITH IVF OF D5 NS @ 75ML/HR IN INFUSING WELL. KEPT BED IN LOW POSITION AND LOCKED. CALL LIGHT IN REACH WITH SIDE RAILS UP APPROPRIATE. MAINTAINED ALL SAFETY MEASURES. ALL NEEDS AND CARE PROVIDED WELL. ENDORSED TO SALARY AND WAGE ADMINISTRATOR NURSE FOR TI.
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
[2016-10-28 19:58] VITALS: BP 114/73
[2016-10-28] MEDS ORDERED: SECONDARY IV SET 1 EA INFUS.SET MC ONE (21:25)
[2016-10-28] MEDS: CEFTRIAXONE 1 G in IV D5W 50 ML IV SCH (22:28)
[2016-10-29] MEDS: IPRATROPIUM NEB FS 0.5 MG/2.5 ML AMPUL.NEB NEB SCH ×4 (03:20→15:57)
[2016-10-29] MEDS: ALBUTEROL HALF STRENGTH 1.25 MG/3 ML VIAL.NEB NEB SCH ×4 (03:20→15:57)
[2016-10-29] MEDS: HALOPERIDOL 5 MG TABLET PO SCH ×2 (04:09→13:00)
--- NOTE | 2016-10-29 06:17 | NUR ---
ms/rn closing notes patient iin bed, sleeping comfortably w/ no s/s of discomfort. calm, quiet and does not have any s/s of combative/aggressive behavior. soft restraint release at this time.will continue monitoring and endorse to am rn.
--- NOTE | 2016-10-29 07:58 | NUR ---
RN MS NOTES RECEIVED PT ASLEEP IN BED, EASILY AROUSABLE. ALERT AND ORIENTED X3, NO/C/O PAIN OR DISCOMFORTS AT THIS TIME. ON ROOM AIR, BREATHING EVEN AND UNLABORED. PIV TO RIGHT AC, PATENT AND INTACT, FLUSHES WELL, IVF INFUSING, SITTER AT BEDSIDE, NO EPISODE OF BEHAVIOR DISTURBANCE AT THIS TIME, BED IN LOWEST POSITION AND LOCKED. CALL LIGHT IN REACH WITH SIDE RAILS UPX2. WILL MAINTAIN ALL SAFETY MEASURES AND WILL CONTINUE TO MONITOR PT ACCORDINGLY.
[2016-10-29 08:00] VITALS: BP 121/90
[2016-10-29] MEDS: PANTOPRAZOLE 40 MG TABLET.DR PO SCH (08:34)
[2016-10-29] MEDS: BENZTROPINE MESYLATE (1 MG) 1 MG TABLET PO SCH ×2 (08:35→13:32)
[2016-10-29] MEDS: LORAZEPAM INJ 2 MG/ML VIAL IV SCH (08:35)
[2016-10-29] MEDS: AMLODIPINE BESYLATE 10 MG TABLET PO SCH (08:35)
[2016-10-29 08:36] VITALS: BP 121/90
[2016-10-29] MEDS: CLONIDINE HCL 0.1 MG TABLET PO SCH (08:36)
[2016-10-29] MEDS: MUPIROCIN OINT 2% 22 GM TUBE SCH (08:42)
[2016-10-29] MEDS: METHADONE HCL 10 MG TABLET PO SCH (08:42)
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
--- NOTE | 2016-10-29 13:57 | NUR ---
RN MS NOTES ASKED DR. SANDERS RE: STEWART CATHETER, PER , REMOVE STEWART. ORDER NOTED AND CARRIED OUT.
--- NOTE | 2016-10-29 15:53 | NUR ---
NIDHI received a call from pt's RN Roxy informing SW that pt' s niece called and stated that she does not feel that pt. is ready for discharge to the Transitional housing. NIDHI contacted pt's niece Ladi and informed her that pt. is medically cleared for discharge by the doctor and currently the Transitional housing is the pt's best option at this time. NIDHI reiterated to Ladi that pt. was interviewed with Moisés from the transitional housing and he was deemed appropriate.
--- NOTE | 2016-10-29 16:30 | NUR ---
LIQUOR MERCHANT NOTE PATIENT ALERT AND ORIENTED, BREATHING EVEN AND UNLABORED, NO DISTRESS NOTED, NO EPISODE OF AGITATION OR ANXIETY, SKIN ASSESSMENT COMPLETED, PHOTOS TAKEN AND PLACED IN CHART, SUTURE ON RIGHT EYEBROW INTACT, CLEAN AND DRY, RECEIVED DISCHARGE INSTRUCTIONS AND VERBALIZED UNDERSTANDING, ALL DISCHARGE PAPERWORKS SIGNED, ALL NEEDS ATTENDED AND MET, PIV REMOVED, BELONGINGS RECONCILED, PATIENT LEFT THE FACILITY VIA TAXI TO GO TO TRANSITIONAL HOUSING. FAMILY AWARE.
--- NOTE | 2016-10-29 17:29 | NUR ---
DR. SANDERS CAME TO 3RD FLOOR NURSES STATION AND GAVE A PRESCRIPTION FOR THE PATIENT, HOWEVER PATIENT ALREADY LEFT, THIS WEDDING PLANNER CALLED [facility] AND INFORMED HER OF THE PRESCRIPTION. PATIENT DOES NOT HAVE A CELLPHONE, MITCHELL STATED SHE WILL CALL A FAMILY MEMBER TO MULTI SITE LEASING CONSULTANT THE PRESCRIPTION.
--- NOTE | 2016-10-29 17:35 | NUR ---
CALLED GARRY FROM TRANSITIONAL HOUSING AND INFORMED OF PRESCRIPTION THAT WILL BE KEPT AT THE NURSES STATION IN 3RD FLOOR, HE STATED HE WILL TRY TO SUPERVISOR STAGE CARPENTRY THE PRESCRIPTION. I CALLED [facility] AGAIN AND INFORMED OF COMMUNICATION WITH GARRY, SHE STATED A FAMILY MEMBER WILL CALL ME.
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
== END 2016-10-29 16:43 | disposition home or self-care (01) | DRG 55 ==
LOC: ER 19:39 → ICU 22:28 → MED 10-27 18:45
PROVIDERS: ADMIT Nurse Practitioner Acute Care; ATTEND Nurse Practitioner Acute Care
PROC: 0BH17EZ Insertion of Endotracheal Airway into Trachea, Via Natural or Artificial Opening (ICD-10-PCS; principal; 2016-10-23)
PROC: 5A1945Z Respiratory Ventilation, 24-96 Consecutive Hours (ICD-10-PCS; principal; 2016-10-23)
PROC: 0HQ1XZZ Repair Face Skin, External Approach (ICD-10-PCS; 2016-10-23)
DX: S06.6X0A Traumatic subarachnoid hemorrhage without loss of consciousness, initial encounter (principal); J96.02 Acute respiratory failure with hypercapnia; G93.41 Metabolic encephalopathy; E87.0 Hyperosmolality and hypernatremia; E46 Unspecified protein-calorie malnutrition; D64.9 Anemia, unspecified; S01.81XA Laceration without foreign body of other part of head, initial encounter; I10 Essential (primary) hypertension; T79.7XXA Traumatic subcutaneous emphysema, initial encounter; F11.20 Opioid dependence, uncomplicated; Y09 Assault by unspecified means; Y92.89 Other specified places as the place of occurrence of the external cause; F17.210 Nicotine dependence, cigarettes, uncomplicated; Y90.8 Blood alcohol level of 240 mg/100 ml or more; E83.39 Other disorders of phosphorus metabolism; E83.42 Hypomagnesemia; E83.51 Hypocalcemia; E87.6 Hypokalemia; F10.229 Alcohol dependence with intoxication, unspecified; J44.9 Chronic obstructive pulmonary disease, unspecified; Y99.9 Unspecified external cause status; S00.03XA Contusion of scalp, initial encounter; E88.09 Other disorders of plasma-protein metabolism, not elsewhere classified; R74.0 Nonspecific elevation of levels of transaminase and lactic acid dehydrogenase [LDH]; H05.221 Edema of right orbit; F19.10 Other psychoactive substance abuse, uncomplicated; B19.20 Unspecified viral hepatitis C without hepatic coma; F07.81 Postconcussional syndrome
CPT/HCPCS: 31720; 36415; 36600; 70450-TC; 70486-TC; 71010-TC; 72125-TC; 73070-TC; 80048-TC; 80053-TC; 80061-TC; 82140-TC; 82803-TC; 83735-TC; 84100-TC; 84443-TC; 84484-TC; 85025-TC; 85730-TC; 87081-TC; 90715; 94002-TC; 94003-TC; 94799-TC; 97001-TC; 99082-TC; A4606; A6402; A6403; G0480; J0360; J0456; J0690; J0696; J1200; J1630; J2060; J2270; J3475; J3480; J3490; J7030; J7042; J7050; J7060; Z7610

== ENCOUNTER 2017-04-12 14:46 | Emergency (ER) | payer MEDICAID, OTHER ==
[~2017-04-12] VITALS: Ht 175.3 cm; Wt 74.8 kg
--- NOTE | 2017-04-12 15:12 | NUR ---
DR COLEMAN AT [facility] FOR EVAL.
[2017-04-12] MEDS ORDERED: ONDANSETRON HCL/PF 4 MG/2 ML VIAL ONE (15:28)
[2017-04-12] MEDS ORDERED: IV NS 0.9% 1,000 ML BAG IV ONE (15:30)
[2017-04-12] MEDS ORDERED: ONDANSETRON HCL/PF 4 MG/2 ML VIAL IVP ONE (15:30)
--- NOTE | 2017-04-12 15:30 | NUR ---
IV LINE STARTED BLOOD DRAWN AND SENT TO LAB.
[2017-04-12 15:36] LABS: BASOPHILS # (AUTO) 0.1 /CMM (0.0-0.2); BASOPHILS % (AUTO) 1.6 % (0.0-2.0); EOSINOPHILS % (AUTO) 0.4 % (0.0-6.0); HEMATOCRIT 40 % (39-51); HEMOGLOBIN 13.4 g/dL (13.5-17.5); LYMPHOCYTES # (AUTO) 0.5 /CMM (0.8-4.8); LYMPHOCYTES % (AUTO) 7.6 % (20.0-44.0); MEAN CORPUSCULAR HEMOGLOBIN 31 PG (26.0-33.0); MEAN CORPUSCULAR HGB CONC 34 g/dl (31.0-36.0); MEAN CORPUSCULAR VOLUME 92 fL (80-96); MONOCYTES # (AUTO) 0.5 /CMM (0.1-1.30); NEUTROPHILS # (AUTO) 5.1 /CMM (1.8-8.9); NEUTROPHILS % (AUTO) 82.4 % (43.0-81.0); PLATELET COUNT (AUTO) 156 /CMM (150-450); RDW COEFFICIENT OF VARIATION 13.9 (11.5-15.0); RED BLOOD CELL COUNT(AUTO) 4.31 MIL/uL (4.5-6.0); WHITE BLOOD COUNT (AUTO) 6.2 K/uL (4.3-11.0)
[2017-04-12 15:46] LABS: CALCIUM, SERUM 8.6 mg/dL (8.5-10.1); CREATININE 0.6 mg/dL (0.6-1.3); POTASSIUM 3.3 mmol/L (3.5-5.1)
[2017-04-12 15:52] LABS: ALBUMIN 3.1 g/dL (3.4-5.0); BILIRUBIN,DIRECT 0.7 mg/dL (0.0-0.2); BILIRUBIN,TOTAL 2.2 mg/dL (0.2-1.0); TOTAL PROTEIN, SERUM 8.6 g/dL (6.4-8.2)
[2017-04-12] MEDS ORDERED: POTASSIUM CHLORIDE 20 MEQ TAB.PRT.SR PO ONE ×2 (17:30→17:46)
--- NOTE | 2017-04-12 17:40 | NUR ---
PT PROVIDED W/ ORAL FLUIDS. TOLERATED WELL. DR COLEMAN AWARE.
--- NOTE | 2017-04-12 17:54 | NUR ---
Patient discharged to home in stable condition. Written and verbal after care instructions given. Patient verbalizes understanding of instruction.IV removed. Catheter intact and site benign. Pressure and 4x4 applied to site. No bleeding noted.
[2017-04-12 17:56] VITALS: BP 136/62
== END 2017-04-12 17:57 | disposition home or self-care (01) ==
LOC: ER 14:50
DX: R11.2 Nausea with vomiting, unspecified (principal); B19.20 Unspecified viral hepatitis C without hepatic coma; I10 Essential (primary) hypertension; F10.10 Alcohol abuse, uncomplicated; F17.200 Nicotine dependence, unspecified, uncomplicated
CPT/HCPCS: 36415; 80048; 80076; 83690; 85025; 96374; 99284; A4606; J2405; J7030; Z7610

== ENCOUNTER 2017-11-20 00:43 | Emergency (ER) | payer MEDICAID, OTHER ==
[~2017-11-20] VITALS: Ht 175.3 cm; Wt 65.8 kg
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
[2017-11-20 04:36] VITALS: BP 145/97
== END 2017-11-20 05:16 | disposition home or self-care (01) ==
LOC: ER 00:45
DX: F10.20 Alcohol dependence, uncomplicated (principal); E11.9 Type 2 diabetes mellitus without complications; Z59.0 Homelessness; Z71.6 Tobacco abuse counseling; Z86.19 Personal history of other infectious and parasitic diseases
CPT/HCPCS: 82962; 99283; 99406; A4606; Z7610

== ENCOUNTER 2018-11-08 06:09 | Inpatient (IN) | payer OTHER ==
[~2018-11-08] VITALS: Ht 175.3 cm; Wt 79.4 kg
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
--- NOTE | 2018-11-08 07:29 | NUR ---
TECH AT BEDSIDE FOR EKG
[2018-11-08] MEDS ORDERED: HYDROCODONE/APAP 5/325MG 1 EACH TABLET PO ONE (07:30)
[2018-11-08] MEDS ORDERED: IV NS 0.9% 500 ML BAG IV ONE (07:30)
[2018-11-08] MEDS ORDERED: HYDROCODONE/APAP 5/325MG 1 EACH TABLET ONE (07:34)
[2018-11-08 07:45] LABS: CALCIUM, SERUM 8.5 mg/dL (8.5-10.1); CREATININE 0.5 mg/dL (0.6-1.3); POTASSIUM 3.8 mmol/L (3.5-5.1)
[2018-11-08 07:50] LABS: BASOPHILS # (AUTO) 0.1 /CMM (0.0-0.2); BASOPHILS % (AUTO) 0.7 % (0.0-2.0); EOSINOPHILS % (AUTO) 0.2 % (0.0-6.0); HEMATOCRIT 40 % (39-51); HEMOGLOBIN 13.5 g/dL (13.5-17.5); LYMPHOCYTES # (AUTO) 0.7 /CMM (0.8-4.8); MEAN CORPUSCULAR HGB CONC 34 g/dl (31.0-36.0); MEAN CORPUSCULAR VOLUME 91 fL (80-96); MONOCYTES # (AUTO) 0.6 /CMM (0.1-1.30); NEUTROPHILS # (AUTO) 10.6 /CMM (1.8-8.9); NEUTROPHILS % (AUTO) 88.1 % (43.0-81.0); PLATELET COUNT (AUTO) 246 /CMM (150-450); RED BLOOD CELL COUNT(AUTO) 4.37 MIL/uL (4.5-6.0)
[2018-11-08 07:51] LABS: ALBUMIN 3.4 g/dL (3.4-5.0); BILIRUBIN,DIRECT 0.2 mg/dL (0.0-0.2); BILIRUBIN,TOTAL 0.5 mg/dL (0.2-1.0); TOTAL PROTEIN, SERUM 7.7 g/dL (6.4-8.2)
--- NOTE | 2018-11-08 08:18 | NUR ---
PAGED ALTAGRACIA ACOSTA FOR ORTHO CONSULT
--- NOTE | 2018-11-08 08:49 | NUR ---
report given to Masha OATES for jigna.
[2018-11-08] MEDS ORDERED: ACETAMINOPHEN 325 MG TABLET PO PRN (09:00)
[2018-11-08] MEDS ORDERED: MAG HYDROX/AL HYDROX/SIMETH 30 ML UDC PO PRN (09:00)
[2018-11-08] MEDS ORDERED: Z GUARD REMEDY 2 OZ OINT TP PRN (09:00)
[2018-11-08] MEDS ORDERED: MAGNESIUM HYDROXIDE 30 ML UDC PO PRN (09:00)
[2018-11-08] MEDS ORDERED: ZOLPIDEM TARTRATE 5 MG TABLET PO PRN (09:00)
[2018-11-08] MEDS ORDERED: HYDROCODONE/APAP 5/325MG 1 EACH TABLET PO PRN (09:00)
[2018-11-08] MEDS ORDERED: ONDANSETRON HCL/PF 4 MG/2 ML VIAL IVP PRN (09:00)
[2018-11-08] MEDS ORDERED: MORPHINE SULFATE INJ 4 MG/ML DISP.SYRIN IV PRN (09:00)
[2018-11-08] MEDS ORDERED: CRAN3875 PO (09:01)
[2018-11-08] MEDS ORDERED: AMLO10TA4 PO (09:01)
[2018-11-08] MEDS ORDERED: CRAN425C6 PO (09:01)
[2018-11-08] MEDS ORDERED: TYL2T MC (09:01)
[2018-11-08] MEDS ORDERED: HYDR-4077 PO (09:01)
[2018-11-08] MEDS ORDERED: ACET325C5 PO (09:01)
[2018-11-08] MEDS ORDERED: LEVE500T9 PO (09:01)
[2018-11-08] MEDS ORDERED: ASCO500C18 PO (09:01)
[2018-11-08] MEDS ORDERED: METO50TA16 PO (09:01)
[2018-11-08] MEDS ORDERED: LACT1CAP61 PO (09:01)
[2018-11-08] MEDS ORDERED: HYDR-4384 PO (09:01)
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
[2018-11-08] MEDS: IV NS 0.9% 1,000 ML IV PRN (09:38)
[2018-11-08 09:40] VITALS: BP 142/90
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
[2018-11-08] MEDS: METOPROLOL TARTRATE 50 MG TABLET PO SCH ×2 (10:53→17:43)
[2018-11-08] MEDS: hydrALAZINE HCL 50 MG TABLET PO SCH ×2 (10:53→17:42)
[2018-11-08] MEDS: LEVETIRACETAM (250 MG) 250 MG TABLET PO SCH ×2 (10:54→20:09)
[2018-11-08] MEDS: POTASSIUM CHLORIDE 20 MEQ TAB.PRT.SR PO SCH ×2 (10:54→13:13)
[2018-11-08] MEDS: AMLODIPINE BESYLATE 10 MG TABLET PO SCH (10:54)
--- NOTE | 2018-11-08 11:31 | NUR ---
MS OATES NOTES CALLED PHARMACY AND SPOKE TO ABDIFATAH, RELAYED MAGNESIUM RESULT. Addendum: 11/08/18 at 1132 by ANASTASIYA ATKINS RN MAG LEVEL OF 1.5
[2018-11-08] MEDS: Magnesium 1GM/D5W 100ML PREMIX 100 ML IV SCH ×2 (11:40→13:13)
[2018-11-08 12:00] VITALS: BP 142/90
[2018-11-08] MEDS: HYDROMORPHONE 1 MG/1 ML DISP.SYRIN IV PRN ×4 (14:28→23:46)
[2018-11-08 16:00] VITALS: BP 142/92
--- NOTE | 2018-11-08 18:11 | NUR ---
MS RN NOTES WITH ORDER FOR UA STAT AND STRAIGHT CATH FOR URINE SPECIMEN, NOTED AND CARRIED OUT. URINE SPECIMEN COLLECTED, PATIENT DOLLY WELL, STERILE TECHNIQUE DONE. CALLED LAB FOR SPECIMEN PERSONAL INJURY SPECIALIST CARE OF
--- NOTE | 2018-11-08 19:00 | NUR ---
MS RN NOTES PATIENT IN BED RESTING COMFORTABLY IN BED. HOB ELEVATED. NO S/S OF RESPIRATORY DISTRESS AT THIS TIME. IN NO APPARENT DISTRESS. RT LEG ELEVATED, IMMOBILIZE. REEDUCATED PATIENT AGAIN ABOUT BEING NPO AFTER MIDNIGHT DUE TO SCHEDULED SURGERY. LEFT FA #20 INFUSING NS @ 75ML/HR DOLLY WELL. NO S/S OF COMPLICATIONS OBSERVED. CALL LIGHT WITHIN REACH. BED IN LOWEST POSITION.
[2018-11-08 19:06] LABS: APPEARANCE,URINE CLEAR (CLEAR); BILIRUBIN,URINE NEGATIVE (NEGATIVE); BLOOD, URINE TRACE-INTA Ery/uL (NEGATIVE); COLOR,URINE YELLOW (YELLOW); KETONES,URINE NEGATIVE (NEGATIVE); LEUKOCYTE ESTERASE ,URINE NEGATIVE (NEGATIVE); NITRITE, URINE NEGATIVE (NEGATIVE); PROTEIN,URINE NEGATIVE (NEGATIVE); UGLUCOSE NEGATIVE (NEGATIVE)
[2018-11-08 19:13] LABS: BACTERIA,URINE Rare /HPF (None Seen); SQUAMOUS EPITHELIAL CELL,UR Rare /HPF (None Seen)
--- NOTE | 2018-11-08 19:26 | NUR ---
RN MS OPENING NOTES RECEIVED PT IN BED, AWAKE ALERT ORIENTED X4 BREATHING EVEN AND UNLABORED WITH 2L OF NC VIA NC. NO COMPLAINT OF PAIN OR DISCOMFORT AT THIS TIME BUT R HIP PAIN WITH MOVEMENT. IV ACCESS ON THE L FA 20G NS @75ML/HR. PT POSITIONED FOR COMFORT, URINAL AT HAND. BE IN LOWEST LOCKED POSITION,CALL LIGHT WITHIN REACH AT ALL TIMES WILL CONTINUE TO MONITOR FREQUENTLY
[2018-11-08 20:34] VITALS: BP 151/104
--- NOTE | 2018-11-08 23:14 | NUR ---
endorsed report to percy fang
--- NOTE | 2018-11-08 23:15 | NUR ---
MS RN NOTES Assume care of this patient. Will continue to monitor accordingly.
[2018-11-09] MEDS: IV NS 0.9% 1,000 ML IV PRN
--- NOTE | 2018-11-09 | NUR ---
MS RN NOTES Reminded patient to keep on NPO for hemiarthroplasty in AM. Patient verbalized understanding. Removed food and water at bedside table.
[2018-11-09] MEDS: HYDROMORPHONE 1 MG/1 ML DISP.SYRIN IV PRN ×3 (02:52→20:05)
[2018-11-09 06:22] LABS: BASOPHILS # (AUTO) 0.1 /CMM (0.0-0.2); BASOPHILS % (AUTO) 0.9 % (0.0-2.0); EOSINOPHILS % (AUTO) 1.2 % (0.0-6.0); HEMATOCRIT 40 % (39-51); HEMOGLOBIN 14.2 g/dL (13.5-17.5); LYMPHOCYTES # (AUTO) 1.5 /CMM (0.8-4.8); LYMPHOCYTES % (AUTO) 13.7 % (20.0-44.0); MEAN CORPUSCULAR HGB CONC 35 g/dl (31.0-36.0); MEAN CORPUSCULAR VOLUME 91 fL (80-96); MONOCYTES # (AUTO) 0.9 /CMM (0.1-1.30); MONOCYTES % (AUTO) 8.7 % (2.0-12.0); NEUTROPHILS # (AUTO) 8.2 /CMM (1.8-8.9); NEUTROPHILS % (AUTO) 75.5 % (43.0-81.0); PLATELET COUNT (AUTO) 242 /CMM (150-450); RED BLOOD CELL COUNT(AUTO) 4.46 MIL/uL (4.5-6.0); WHITE BLOOD COUNT (AUTO) 10.9 K/uL (4.3-11.0)
[2018-11-09 06:39] LABS: ALBUMIN 3.2 g/dL (3.4-5.0); BILIRUBIN,TOTAL 1.2 mg/dL (0.2-1.0); CALCIUM, SERUM 8.4 mg/dL (8.5-10.1); CREATININE 0.5 mg/dL (0.6-1.3); MAGNESIUM 1.9 mg/dL (1.8-2.4); PHOSPHORUS 2.9 mg/dL (2.5-4.9); POTASSIUM 3.5 mmol/L (3.5-5.1); TOTAL PROTEIN, SERUM 7.6 g/dL (6.4-8.2)
--- NOTE | 2018-11-09 06:45 | NUR ---
MS RN CLOSING NOTES Patient intermittently asleep on bed. Medicated for pain, noted effective. All nursing needs attended. Kept on bed clean, dry and comfortable. Call light within easy reach. For R hip hemiarthoplasty this AM. Kept on NPO since midnight. Endorsed to the next shift.
--- NOTE | 2018-11-09 07:38 | NUR ---
MS RN OPENING NOTES RECEIVED PT LAYING IN BED WITH HOB ELEVATED. PT IS A/O X4, AFEBRILE. RESPIRATIONS ARE EVEN AND UNLABORED, NOT IN ANY ACUTE DISTRESS NOTED. C/O PAIN TO LEFT HIP AND IS SCHEDULED OR SURGERY THIS AM. PUPILS ARE REACTIVE TO LIGHT, BILATERAL HAND STEAM PAN SPONGER ARE STRONG AND EQUAL. IV TO LFA INTACT, NO INFILTRATION NOTED. DRESSING KEPT CLEAN AND DRY. IV FLUIDS RUNNING AT 75ML/HR, TOLERATING WELL. SAFETY MEASURES ARE IN PLACE. INSTRUCTED PT TO USE CALL LIGHT WHEN ASSISTANCE IS NEEDED, CALL LIGHT IS LEFT WITHIN REACH. WILL MONITOR THROUGHOUT SHIFT FOR CONTINUITY OF CARE.
[2018-11-09 08:00] VITALS: BP 137/80
--- NOTE | 2018-11-09 08:05 | NUR ---
MS RN NOTES-- PT P/U BY OR STAFF FOR SCHEDULED SURGERY TO RIGHT HIP.
[2018-11-09] MEDS ORDERED: FENTANYL PF 250MCG/5ML AMPUL ONE (08:12)
[2018-11-09] MEDS ORDERED: MIDAZOLAM HCL 2 MG/2ML VIAL ONE (08:12)
[2018-11-09] MEDS ORDERED: ROCURONIUM BROMIDE 50 MG/5 ML ONE (08:13)
[2018-11-09] MEDS ORDERED: FAMOTIDINE/PF INJ 20 MG/2 ML VIAL IV ONE (08:13)
[2018-11-09] MEDS ORDERED: BACITRACIN 50000 UNITS/VIAL ONE (08:23)
[2018-11-09] MEDS ORDERED: BUPIVACAINE 0.5 % PF 150 MG/30 ML VIAL ONE (08:23)
[2018-11-09] MEDS: hydrALAZINE HCL 50 MG TABLET PO SCH ×2 (09:00→16:05)
[2018-11-09] MEDS ORDERED: TRANEXAMIC ACID 3,000 MG in SODIUM CHLORIDE IRRIG SOLUTION 70 ML IR ONE (09:00)
[2018-11-09] MEDS: AMLODIPINE BESYLATE 10 MG TABLET PO SCH (09:00)
[2018-11-09] MEDS: METOPROLOL TARTRATE 50 MG TABLET PO SCH ×2 (09:00→16:05)
[2018-11-09] MEDS: LEVETIRACETAM (250 MG) 250 MG TABLET PO SCH ×2 (09:00→20:04)
--- NOTE | 2018-11-09 10:12 | NUR ---
MS RN NOTES-- MORNING MEDICATIONS NOT GIVEN D/T PT CURRENTLY ON OR.
[2018-11-09] MEDS ORDERED: VANCOMYCIN 1 GM in IV D5W 250 ML IV SCH (11:00)
[2018-11-09] MEDS ORDERED: DOSE PER PHARMACY (MD SPECIFY MEDICATION) 1 EA XX PRN (11:00)
--- NOTE | 2018-11-09 11:29 | NUR ---
MS RN NOTES-- PT CAME BACK FROM OR, S/O RIGHT HIP HEMIARTHROPLASTY W/ ORDERS NOTED AND CARRIED OUT. HIP ABDUCTOR IN PLACE. WILL CONTINUE TO MONITOR PT.
[2018-11-09 11:30] VITALS: BP 125/72
[2018-11-09] MEDS ORDERED: HYDROCODONE/APAP 5/325MG 1 EACH TABLET PO PRN (11:30)
[2018-11-09] MEDS ORDERED: FEE PK DOSING 1 MIN EA MC ONE (11:40)
[2018-11-09] MEDS: IV LR 1000 ML 1,000 ML IV PRN (12:32)
[2018-11-09] MEDS: VANCOMYCIN 1 GM in IV D5W 250 ML IV SCH ×2 (12:32→19:59)
[2018-11-09 13:29] LABS: CALCIUM, SERUM 8.4 mg/dL (8.5-10.1); CREATININE 0.7 mg/dL (0.6-1.3)
[2018-11-09 13:31] LABS: BASOPHILS # (AUTO) 0.1 /CMM (0.0-0.2); BASOPHILS % (AUTO) 0.7 % (0.0-2.0); EOSINOPHILS % (AUTO) 0.5 % (0.0-6.0); HEMATOCRIT 42 % (39-51); HEMOGLOBIN 14.1 g/dL (13.5-17.5); LYMPHOCYTES # (AUTO) 1.3 /CMM (0.8-4.8); LYMPHOCYTES % (AUTO) 9.1 % (20.0-44.0); MEAN CORPUSCULAR HGB CONC 34 g/dl (31.0-36.0); MEAN CORPUSCULAR VOLUME 92 fL (80-96); MONOCYTES # (AUTO) 0.8 /CMM (0.1-1.30); MONOCYTES % (AUTO) 5.8 % (2.0-12.0); NEUTROPHILS # (AUTO) 11.5 /CMM (1.8-8.9); NEUTROPHILS % (AUTO) 83.9 % (43.0-81.0); PLATELET COUNT (AUTO) 216 /CMM (150-450); RED BLOOD CELL COUNT(AUTO) 4.54 MIL/uL (4.5-6.0); WHITE BLOOD COUNT (AUTO) 13.7 K/uL (4.3-11.0)
[2018-11-09] MEDS: CEFAZOLIN 2 GM in IV D5W 50 ML IV SCH ×2 (13:57→21:13)
[2018-11-09 15:30] VITALS: BP 146/87
--- NOTE | 2018-11-09 16:21 | NUR ---
MS RN NOTES-- TRANSFERRED CARE TO [facility] CORNEJO FOR CONTINUITY OF CARE. PT REMAINS A/O X4, AFEBRILE. RESPIRATIONS ARE EVEN AND UNLABORED, NOT IN ANY ACUTE DISTRESS NOTED. ADMINISTER NORCO 5/325 2 TABS FOR PAIN 10/10 TO RIGHT HIP. DENIES ANY SOB, N/V. IV SITE TO LFA INTACT, NO INFILTRATION NOTED. DRESSING KEPT CLEAN AND DRY. BEDSIDE ENDORSEMENT GIVEN.
--- NOTE | 2018-11-09 18:25 | NUR ---
RN CLOSING NOTES PT AWAKE AND RESTING IN BED. NO COMPLAINTS OF PAIN, SOB OR DISTRESS AT THIS TIME. PT IS S/P RIGHT HIP SX TODAY. PT HAS A LEFT FOREARM #20 IV INTACT AND RUNNING LR @75ML/HR. PT HAS A STEWART CATHETER INTACT AND DRAINING WELL. HIP ABDUCTOR IN PLACE. SAFETY PRECAUTIONS IN PLACE. BED IN LOWEST LOCKED POSITION, X2 SIDE RAILS UP AND CALL LIGHT WITHIN REACH. WILL ENDORSE TO STAKING PRESS OPERATOR NURSE FOR CONTINUITY OF CARE.
--- NOTE | 2018-11-09 19:24 | NUR ---
RN NOTES PER COMPUTER TAPE LIBRARIAN GORGE PHILLIPS, CHANGE PRN NORCO FROM Q6H TO Q4H. WILL CARRY OUT ORDERED.
--- NOTE | 2018-11-09 19:31 | NUR ---
LASHON MS CLOSING NOTES RECEIVED PT IN BED, AWAKE ALERT ORIENTED X4 BREATHING EVEN AND UNLABORED WITH 2L OF NC VIA NC. NO COMPLAINT OF PAIN OR DISCOMFORT AT THIS TIME. IV ACCESS ON THE L FA 20G NS @75ML/HR. PT POSITIONED FOR COMFORT,STEWART CATH IN PLACE. BE IN LOWEST LOCKED POSITION,CALL LIGHT WITHIN REACH AT ALL TIMES WILL CONTINUE TO MONITOR FREQUENTLY Addendum: 11/10/18 at 0615 by SHASHANK SWANSON RN OPENING NOTES
[2018-11-09 20:00] VITALS: BP 124/80
[2018-11-09] MEDS: HYDROCODONE/APAP 5/325MG 1 EACH TABLET PO PRN (22:10)
[2018-11-10] MEDS: HYDROCODONE/APAP 5/325MG 1 EACH TABLET PO PRN ×3 (02:08→20:22)
[2018-11-10] MEDS: VANCOMYCIN 1 GM in IV D5W 250 ML IV SCH ×3 (04:20→17:21)
[2018-11-10] MEDS: CEFAZOLIN 2 GM in IV D5W 50 ML IV SCH ×3 (04:40→20:26)
[2018-11-10] MEDS: IV LR 1000 ML 1,000 ML IV PRN (05:49)
--- NOTE | 2018-11-10 06:14 | NUR ---
RN MS CLOSING NOTES PT REMAINS IN BED, AWAKE ALERT ORIENTED X4 BREATHING EVEN AND UNLABORED WITH 2L OF NC VIA NC. NO COMPLAINT OF PAIN OR DISCOMFORT AT THIS TIME. IV ACCESS ON THE L FA 20G LR @100ML/HR. PT POSITIONED FOR COMFORT,STEWART CATH IN PLACE. BE IN LOWEST LOCKED POSITION,CALL LIGHT WITHIN REACH AT ALL TIMES WILL ENDORSE TO DAY NURSE
[2018-11-10 06:23] LABS: BASOPHILS # (AUTO) 0.1 /CMM (0.0-0.2); BASOPHILS % (AUTO) 0.5 % (0.0-2.0); EOSINOPHILS % (AUTO) 1.5 % (0.0-6.0); HEMATOCRIT 38 % (39-51); LYMPHOCYTES # (AUTO) 1.9 /CMM (0.8-4.8); LYMPHOCYTES % (AUTO) 15.5 % (20.0-44.0); MEAN CORPUSCULAR HGB CONC 34 g/dl (31.0-36.0); MEAN CORPUSCULAR VOLUME 91 fL (80-96); MONOCYTES # (AUTO) 1.2 /CMM (0.1-1.30); MONOCYTES % (AUTO) 10.1 % (2.0-12.0); NEUTROPHILS # (AUTO) 8.7 /CMM (1.8-8.9); NEUTROPHILS % (AUTO) 72.4 % (43.0-81.0); PLATELET COUNT (AUTO) 186 /CMM (150-450); RED BLOOD CELL COUNT(AUTO) 4.17 MIL/uL (4.5-6.0); WHITE BLOOD COUNT (AUTO) 12.1 K/uL (4.3-11.0)
[2018-11-10 06:42] LABS: CALCIUM, SERUM 8.1 mg/dL (8.5-10.1); CREATININE 0.5 mg/dL (0.6-1.3); POTASSIUM 3.3 mmol/L (3.5-5.1)
--- NOTE | 2018-11-10 07:30 | NUR ---
RN OPENING NOTES RECEIVED PATIENT IN BED, AWAKE ALERT ORIENTED X4, ABLE TO MAKE NEEDS KNOWN. BREATHING EVEN AND UNLABORED WITH 2L OF OXYGEN VIA NC. COMPLAINT OF R HIP PAIN 11/27, WILL ADMINISTER PAIN MEDS ORDERED. IV ACCESS INTACT AND PATENT. POSITIONED PATIENT FOR COMFORT. STEWART CATH IN PLACE, DRAINING CLEAR YELLOW URINE . BED IN LOWEST LOCKED POSITION,CALL LIGHT WITHIN REACH AT ALL TIMES, SIDERAILS UPX2. WILL CONTINUE TO MONIOTR ACCORDINGLY.
[2018-11-10] MEDS: HYDROMORPHONE 1 MG/1 ML DISP.SYRIN IV PRN ×5 (07:52→21:44)
[2018-11-10 08:00] VITALS: BP 142/88
[2018-11-10] MEDS ORDERED: POTASSIUM CHLORIDE 20 MEQ TAB.PRT.SR PO ONE (08:23)
[2018-11-10] MEDS ORDERED: POTASSIUM CHLORIDE 20 MEQ TAB.PRT.SR PO SCH ×2 (09:00→10:00)
[2018-11-10] MEDS: LEVETIRACETAM (250 MG) 250 MG TABLET PO SCH ×2 (10:11→20:26)
[2018-11-10] MEDS: hydrALAZINE HCL 50 MG TABLET PO SCH ×2 (10:12→16:31)
[2018-11-10] MEDS: AMLODIPINE BESYLATE 10 MG TABLET PO SCH (10:12)
[2018-11-10] MEDS: METOPROLOL TARTRATE 50 MG TABLET PO SCH ×2 (10:12→16:31)
[2018-11-10] MEDS: ENOXAPARIN SODIUM 40 MG/0.4 ML DISP.SYRIN SQ SCH (10:15)
--- NOTE | 2018-11-10 14:50 | NUR ---
DC STEWART, NO COMPLICATION. TOLERATED WELL.
[2018-11-10 16:00] VITALS: BP 139/79
--- NOTE | 2018-11-10 18:28 | NUR ---
RN CLOSING NOTES PATIENT IN STABLE CONDITION. ALL NEEDS ATTENDED AND PROVIDED. ALL DUE MEDICATIONS GIVEN ORDERED. ASSISTED WITH ADLS. TURNED AND REPOSITIONED PATIENT EVERY 2 HRS NEEDED. ABDUCTOR PILLOW IN PLACE. KEPT PATIENT SAFE AND COMFORTABLE. BED IN LOW/LOCKED POSITION, SIDERAILS UPX2, CALL LIGHT IN REACH. WILL ENDORSE TO NIGHT RN FOR TI.
--- NOTE | 2018-11-10 19:39 | NUR ---
RN MS OPENING NOTES RECEIVED PATIENT IN BED AWAKE, ALERT AND ORIENTED X4, VERBALLY RESPONSIVE, ABLE TO MAKE NEEDS KNOWN. BREATHING EVEN AND UNLABORED. NO SOB NOTED. ON 2LPM VIA NC. CURRENTLY WITH NO COMPLAINTS OF PAIN OR DISCOMFORT. ABDUCTOR PILLOW IN PLACE WELL SCDs. LEFT FOREARM IV INTACT AND PATENT. SKIN DRY AND WARM TO TOUCH. AFEBRILE. ALL OTHER NEEDS MET AND ATTENDED TO. SAFETY MEASURES IN PLACE. CALL LIGHT WITHIN REACH. WILL CONTINUE TO MONITOR.
[2018-11-10 20:00] VITALS: BP 133/71
--- NOTE | 2018-11-10 20:25 | NUR ---
RN MS NOTES PATIENT NOTED TO HAVE 100.2F TEMPERATURE. PATIENT ALSO COMPLAINED OF PAIN 9/10 ON RIGHT HIP. NORCO 5-325MG PO 2 PILLS GIVEN. WILL CONTINUE TO MONITOR.
[2018-11-11] MEDS: VANCOMYCIN 1 GM in IV D5W 250 ML IV SCH ×4 (00:08→18:45)
[2018-11-11] MEDS: HYDROMORPHONE 1 MG/1 ML DISP.SYRIN IV PRN ×3 (01:06→12:31)
[2018-11-11] MEDS: HYDROCODONE/APAP 5/325MG 1 EACH TABLET PO PRN ×4 (03:35→19:49)
[2018-11-11] MEDS: CEFAZOLIN 2 GM in IV D5W 50 ML IV SCH ×2 (04:46→13:40)
[2018-11-11 06:41] LABS: BASOPHILS # (AUTO) 0.1 /CMM (0.0-0.2); BASOPHILS % (AUTO) 0.5 % (0.0-2.0); HEMATOCRIT 36 % (39-51); HEMOGLOBIN 12.7 g/dL (13.5-17.5); LYMPHOCYTES # (AUTO) 1.9 /CMM (0.8-4.8); LYMPHOCYTES % (AUTO) 15.9 % (20.0-44.0); MEAN CORPUSCULAR HGB CONC 35 g/dl (31.0-36.0); MEAN CORPUSCULAR VOLUME 91 fL (80-96); MONOCYTES # (AUTO) 1.5 /CMM (0.1-1.30); MONOCYTES % (AUTO) 12.6 % (2.0-12.0); NEUTROPHILS # (AUTO) 8.2 /CMM (1.8-8.9); PLATELET COUNT (AUTO) 188 /CMM (150-450); WHITE BLOOD COUNT (AUTO) 11.9 K/uL (4.3-11.0)
[2018-11-11 06:51] LABS: CALCIUM, SERUM 8.1 mg/dL (8.5-10.1); CREATININE 0.5 mg/dL (0.6-1.3); POTASSIUM 3.7 mmol/L (3.5-5.1)
--- NOTE | 2018-11-11 07:09 | NUR ---
RN MS CLOSING NOTES PATIENT RESTING IN BED. NO ACUTE CHANGES THROUGHOUT SHIFT. BREATHING EVEN AND UNLABORED. NO SOB NOTED. ON 2LPM VIA NC. CURRENTLY WITH NO COMPLAINTS OF PAIN OR DISCOMFORT. ABDUCTOR PILLOW IN PLACE WELL SCDs. LEFT FOREARM IV INTACT AND PATENT. DRESSING ON LEFT KNEE DRY CLEAN AND INTACT. ALL OTHER NEEDS MET AND ATTENDED TO. SAFETY MEASURES IN PLACE. CALL LIGHT WITHIN REACH. WILL ENDORSE TO ONCOMING NURSE FOR TI.
--- NOTE | 2018-11-11 07:42 | NUR ---
MS RN NOTES PATIENT RECEIVED RESTING INSIDE ROOM. SLEEPING EASILY AROUSABLE THROUGH VERBAL AND TACTILE STIMULI. NO ACUTE DISTRESS. DRESSING NOTED ON LEFT KNEE, INTACT AND DRY. ABDUCTOR PILLOW IN PLACE. IV INTACT AND PATENT. WILL CONTINUE TO MONITOR. BED LOCKED AND IN LOW POSITION. BILATERAL UPPER SIDE RAILS UP AND LOCKED. CALL LIGHT WITHIN EASY REACH
[2018-11-11 08:00] VITALS: BP 128/81
[2018-11-11] MEDS: LEVETIRACETAM (250 MG) 250 MG TABLET PO SCH (08:09)
[2018-11-11] MEDS: AMLODIPINE BESYLATE 10 MG TABLET PO SCH (08:09)
[2018-11-11] MEDS: hydrALAZINE HCL 50 MG TABLET PO SCH ×2 (08:09→16:39)
[2018-11-11] MEDS: METOPROLOL TARTRATE 50 MG TABLET PO SCH ×2 (08:09→16:39)
[2018-11-11] MEDS: ENOXAPARIN SODIUM 40 MG/0.4 ML DISP.SYRIN SQ SCH (09:31)
[2018-11-11] MEDS ORDERED: VANC1FRO2 IV (09:46)
[2018-11-11] MEDS ORDERED: CEFA1PIG IV (09:46)
[2018-11-11] MEDS ORDERED: HYDR-4384 PO (09:46)
[2018-11-11 16:00] VITALS: BP 126/76
--- NOTE | 2018-11-11 16:07 | NUR ---
MS RN NOTES PLACED CALL TO JEFF BHATT PAC TO VERIFY IF RN IS OK TO CHANGE DRESSING ON RIGHT HIP PATIENT HAS PLAN TO BE DISCHARGED TODAY. JEFF BHATT GAVE OK FOR NURSING TO CHANGE DRESSING. NOTED AND CARRIED OUT. PATIENT MADE AWARE AND VERBALIZED UNDERSTANDING. WILL CONTINUE TO MONITOR
--- NOTE | 2018-11-11 16:21 | NUR ---
MS RN NOTES PLACED CALL TO [facility] ([phone]) AND GAVE REPORT TO ALEX OATES. MADE AWARE THAT PATIENT NEEDS TO HAVE VANCO TROUGH DRAWN AT 1700 PRIOR TO DISCHARGE. ALSO MADE AWARE THAT PATIENT NEEDS TO BE ON LOVENOX 40MG SQ Q24�, ALEX OATES VERBALIZED UNDERSTANDING
[2018-11-11 16:39] VITALS: BP 126/76
--- NOTE | 2018-11-11 18:34 | NUR ---
MS RN NOTES PATIENT RESTING INSIDE ROOM. AWAKE, ALERT AND ORIENTED X 4, VERBALLY RESPONSIVE AND RESPONDS TO VERBAL AND TACTILE STIMULI. BREATHING EVEN AND UNLABORED. NO ACUTE DISTRESS. PATIENT CALM AND RELAXED. ABDUCTOR PILLOW IN PLACE. IV INTACT AND PATENT. AWAITING FOR AMBULANCE TRANSPORTATION PATIENT WILL BE DISCHARGED TO SNF. PATIENT AWARE AND VERBALIZED UNDERSTANDING. DISCHARGE TEACHING AND EDUCATION PROVIDED TO PATIENT AND VERBALIZED UNDERSTANDING. ALL BELONGINGS COMPLETE AT BEDSIDE. NO REPORT OF MISSING INVENTORY. DRESSING INTACT ON RIGHT HIP, NO DRAINAGE OR BLEEDING NOTED. DRESSING IN PLACE ON LEFT KNEE. WILL ENDORSE TO INCOMING SHIFT FOR TI. BED LOCKED AND IN LOW POSITION. BILATERAL UPPER SIDE RAILS UP AND LOCKED. CALL LIGHT WITHIN EASY REACH
--- NOTE | 2018-11-11 18:37 | NUR ---
MS RN NOTES RECEIVED VANCO TROUGH LEVEL RESULT OF 15. PLACED CALL TO PHARMACY AND SPOKE WITH ABDIFATAH, CHARITO LOPES TO CONTINUE CURRENT DOSE OF VANCOMYCIN 1G Q6�. NOTED AND CARRIED OUT. PATIENT MADE AWARE AND VERBALIZED UNDERSTANDING. PLACED CALL TO [facility] AND SPOKE TO ALEX RN AND MADE AWARE. WILL CONTINUE TO MONITOR.
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
--- NOTE | 2018-11-11 19:49 | NUR ---
MS RN NOTES MOANING IN PAIN,MEDICATED WITH NORCO 5/325MG,2 TABS PO FOR PAIN 7/10 ON PAIN SCALE.
--- NOTE | 2018-11-11 20:05 | NUR ---
MS RN NOTES VALET PARKER BY AMBULANCE IN STABLE CONDITION.SALINE LOCK REMOVED.WRIST BAND REMOVED.
== END 2018-11-11 20:05 | DRG 301 ==
LOC: ER 06:10 → MED 08:14
PROVIDERS: ADMIT Internal Medicine; ATTEND Nurse Practitioner Acute Care
PROC: 0SRR0JZ Replacement of Right Hip Joint, Femoral Surface with Synthetic Substitute, Open Approach (ICD-10-PCS; principal; 2018-11-09)
DX: S72.001A Fracture of unspecified part of neck of right femur, initial encounter for closed fracture (principal); D68.59 Other primary thrombophilia; Z93.0 Tracheostomy status; E44.1 Mild protein-calorie malnutrition; E83.42 Hypomagnesemia; I69.351 Hemiplegia and hemiparesis following cerebral infarction affecting right dominant side; Y92.129 Unspecified place in nursing home as the place of occurrence of the external cause; I10 Essential (primary) hypertension; W01.0XXA Fall on same level from slipping, tripping and stumbling without subsequent striking against object, initial encounter; K21.9 Gastro-esophageal reflux disease without esophagitis; E87.6 Hypokalemia; E78.5 Hyperlipidemia, unspecified; F17.200 Nicotine dependence, unspecified, uncomplicated; Z86.19 Personal history of other infectious and parasitic diseases; Z79.899 Other long term (current) drug therapy; K80.20 Calculus of gallbladder without cholecystitis without obstruction; L02.425 Furuncle of right lower limb; Z74.09 Other reduced mobility; Z93.1 Gastrostomy status; Z87.09 Personal history of other diseases of the respiratory system
CPT/HCPCS: 36415; 71045-TC; 73502; 73552; 76700-TC; 80048-TC; 80053-TC; 80061-TC; 80076-TC; 80202-TC; 81000-TC; 83735-TC; 84100-TC; 84484-TC; 85025-TC; 85730-TC; 86850-TC; 87081-TC; 88305-TC; 88311-TC; 93307-TC; 97110-TC; 97112-TC; 97530-TC; A4217; A6209; G0378; J0690; J1170; J1650; J2250; J2270; J2405; J2704; J2710; J2765; J3010; J3370; J3475; J3490; J7030; J7040; J7050; J7060; J7120

== ENCOUNTER 2018-12-24 17:35 | Inpatient (IN) | payer OTHER ==
[~2018-12-24] VITALS: Ht 175.3 cm; Wt 80.7 kg
[2018-12-24] MEDS: VANCOMYCIN 1 GM in IV D5W 250 ML IV SCH ×3 (04:37→21:15)
[~2018-12-24 17:35] MED LIST changes: +ACET325C5 PO; +AMLO10TA4 PO; +ASCO500C18 PO; +CEFA1PIG IV; -CLON0.1T PO; +CRAN3875 PO; +CRAN425C6 PO; +HYDR-4077 PO; +HYDR-4384 PO; +LACT1CAP61 PO; +LEVE500T9 PO; -METH10TA2 PO; +METO50TA16 PO; +TYL2T MC; +VANC1FRO2 IV
--- NOTE | 2018-12-24 17:37 | NUR ---
PT BIBPA SENT FROM [facility] C/O ABSCESS ABOVE RIGHT KNEE, PT IS AAOX4, NOT IN RESPIRATORY DISTRESS, HOOKED TO MONITOR, KEPT RESTED AND COMFORTABLE, WILL CONITNUE TO MONITOR.
--- NOTE | 2018-12-24 17:56 | NUR ---
SEEN AND EXAMINED BY .
[2018-12-24] MEDS ORDERED: MORPHINE SULFATE INJ 2 MG/ML DISP.SYRIN IV ONE (18:00)
[2018-12-24] MEDS ORDERED: PIPERACILLIN /TAZOBACTAM 3.375 G in IV D5W 50 ML IV ONE (18:00)
[2018-12-24] MEDS ORDERED: ONDANSETRON HCL/PF 4 MG/2 ML VIAL IVP ONE (18:00)
[2018-12-24] MEDS ORDERED: IV NS 0.9% 1,000 ML BAG IV ONE (18:00)
[2018-12-24] MEDS ORDERED: VANCOMYCIN 1 GM in IV D5W 250 ML IV ONE (18:00)
--- NOTE | 2018-12-24 18:00 | NUR ---
IV LINE ESTABLISHED, BLOOD DRAWNED AND SENT TO LAB.
[2018-12-24 18:11] LABS: BASOPHILS # (AUTO) 0.1 /CMM (0.0-0.2); EOSINOPHILS % (AUTO) 2.8 % (0.0-6.0); HEMATOCRIT 38 % (39-51); HEMOGLOBIN 12.8 g/dL (13.5-17.5); LYMPHOCYTES # (AUTO) 1.5 /CMM (0.8-4.8); LYMPHOCYTES % (AUTO) 15.4 % (20.0-44.0); MEAN CORPUSCULAR HGB CONC 34 g/dl (31.0-36.0); MEAN CORPUSCULAR VOLUME 95 fL (80-96); MONOCYTES # (AUTO) 1.1 /CMM (0.1-1.30); MONOCYTES % (AUTO) 11.6 % (2.0-12.0); NEUTROPHILS # (AUTO) 6.6 /CMM (1.8-8.9); NEUTROPHILS % (AUTO) 69.2 % (43.0-81.0); PLATELET COUNT (AUTO) 275 /CMM (150-450); RED BLOOD CELL COUNT(AUTO) 3.99 MIL/uL (4.5-6.0); WHITE BLOOD COUNT (AUTO) 9.6 K/uL (4.3-11.0)
[2018-12-24] MEDS ORDERED: AMIN30LI2 PO (18:18)
[2018-12-24] MEDS ORDERED: MULT-447 PO (18:18)
[2018-12-24] MEDS ORDERED: MAGN400O6 PO (18:18)
[2018-12-24] MEDS ORDERED: HYDR-4384 PO (18:18)
[2018-12-24] MEDS ORDERED: FERR325T23 PO (18:18)
[2018-12-24] MEDS ORDERED: VITA1TAB56 PO (18:18)
[2018-12-24] MEDS ORDERED: ZINC220C8 PO (18:18)
[2018-12-24] MEDS ORDERED: NA P133E RC (18:18)
[2018-12-24] MEDS ORDERED: MORPHINE SULFATE INJ 4 MG/ML DISP.SYRIN ONE (18:18)
[2018-12-24] MEDS ORDERED: BISA10SU11 RC (18:18)
[2018-12-24] MEDS ORDERED: DOCU-141 PO (18:18)
[2018-12-24] MEDS ORDERED: MAG30ORA PO (18:18)
--- NOTE | 2018-12-24 18:18 | NUR ---
PERMIT SPECIALIST AT BEDSIDE FOR XRAY.
[2018-12-24 18:20] LABS: CALCIUM, SERUM 8.9 mg/dL (8.5-10.1); CREATININE 0.6 mg/dL (0.6-1.3); POTASSIUM 3.4 mmol/L (3.5-5.1)
[2018-12-24] MEDS ORDERED: SULF1TAB48 PO (18:20)
[2018-12-24 18:26] LABS: ALBUMIN 3.4 g/dL (3.4-5.0); BILIRUBIN,DIRECT 0.2 mg/dL (0.0-0.2); BILIRUBIN,TOTAL 0.4 mg/dL (0.2-1.0); TOTAL PROTEIN, SERUM 7.9 g/dL (6.4-8.2)
[2018-12-24] MEDS ORDERED: MAG HYDROX/AL HYDROX/SIMETH 30 ML UDC PO PRN (18:30)
[2018-12-24] MEDS ORDERED: ZOLPIDEM TARTRATE 5 MG TABLET PO PRN (18:30)
[2018-12-24] MEDS ORDERED: ONDANSETRON HCL/PF 4 MG/2 ML VIAL IVP PRN (18:30)
[2018-12-24] MEDS ORDERED: ACETAMINOPHEN 325 MG TABLET PO PRN (18:30)
[2018-12-24] MEDS ORDERED: MAGNESIUM HYDROXIDE 30 ML UDC PO PRN (18:30)
[2018-12-24] MEDS ORDERED: Z GUARD REMEDY 2 OZ OINT TP PRN (18:30)
--- NOTE | 2018-12-24 19:39 | NUR ---
PT RECEIVED FROM STIVENRN FOR TI
[2018-12-24] MEDS ORDERED: POTASSIUM CHLORIDE 20 MEQ TAB.PRT.SR PO ONE ×2 (20:00→20:05)
--- NOTE | 2018-12-24 20:12 | NUR ---
ASSIGNED BED 306-1
--- NOTE | 2018-12-24 20:32 | NUR ---
REPORT GIVEN TO LASHON SAUL FOR TI
--- NOTE | 2018-12-24 20:33 | NUR ---
RN medsurg notes Received report from Er nurse LASHON Sierra
[2018-12-24] MEDS ORDERED: FEE PK DOSING 1 MIN EA MC ONE (20:55)
--- NOTE | 2018-12-24 21:12 | NUR ---
PT TRANSPORTED TO UNIT ON GURNEY BY EMT. PT IS STABLE FORE TRANSPORT.
[2018-12-24 21:30] VITALS: BP 126/73
--- NOTE | 2018-12-24 21:40 | NUR ---
LASHON hernándezsurcarlos admission notes Received Pt from ER nurse. Pt was transported to the unit via a gurney. Pt is 53 Y O Male with a diagnose of cellulitis/bursitis. Pt is alert and oriented X4. Respiration is normal. No SOB. No nausea or vomiting. Pt denies any pain at this time. IV sites at Right hand # 22 is clean, intact, patent and SL. Skin assessment done and pictures taken and placed at Pt's chart. Pt has skin rash in his back and right knee abscess. All belongings was checked by LASHON Basilio. Safety precautions is maintained. Instructed to call. Bed at low position, side rails upX2, brakes locked and call light is within reach. Will continue to monitor.
[2018-12-24] MEDS: HEPARIN SODIUM, PORCINE 5000 UNITS/1 ML VIAL SQ SCH (22:03)
--- NOTE | 2018-12-25 | NUR ---
RN erik notes Skin care provided for right knee abscess. Cleaned with NS, pat dry, gauze and wrapped with kerlix. wound care consult ordered for AM. Will continue to monitor.
[2018-12-25] MEDS: HYDROCODONE/APAP 5/325MG 1 EACH TABLET PO PRN ×3 (00:15→17:25)
--- NOTE | 2018-12-25 00:16 | NUR ---
RN medsurg notes Administered [place] 5/325 mg/1 tab/PO as ordered for pain on right knee 7/10 on pain scale. Instructed to call. will continue to monitor.
[2018-12-25] MEDS ORDERED: PIPERACILLIN /TAZOBACTAM 3.375 G VIAL IV ONE ×2 (01:10→06:49)
[2018-12-25] MEDS: PIPERACILLIN /TAZOBACTAM 3.375 G in IV D5W 50 ML IV SCH ×5 (01:12→23:56)
--- NOTE | 2018-12-25 01:12 | NUR ---
RN medsurg notes Manually enter Zosyn 3.375 g IV piggyback. Received Zosyn from Charge nurse LASHON Jose overrode Zosyn 3.375 g IV piggyback.
[2018-12-25] MEDS ORDERED: VANCOMYCIN 1 GM VIAL ONE (04:34)
[2018-12-25] MEDS: VANCOMYCIN 1 GM in IV D5W 250 ML IV SCH ×3 (04:35→20:29)
--- NOTE | 2018-12-25 04:43 | NUR ---
RN medsurg notes Administered Vancomycin 1 gm piggy back as ordered. Received Vancomycin 1 gm from Charge nurse LASHON Jose. Manually entered Vancomycin 1 gm in eMAr. Will continue to monitor.
--- NOTE | 2018-12-25 05:45 | NUR ---
RN medsurg notes Old IV sites at right hand #22 is not infusing well, occluded. Inserted new IV sites at left forearm# 24 with good blood return. New IV sites is clean, intact, patent and flush without resistance. Pt tolerated activity well.
--- NOTE | 2018-12-25 06:39 | NUR ---
RN medsurg closing notes Pt is alert and orientedX4. Pt is resting in bed comfortably. Respiration is normal. No SOB. Pt denies any pain or discomfort. New IV sites at Left forearm is clean, intact, patent and infusing well. Routine meds were given as ordered. Skin care provided. Kept Pt warm, clean and comfortable. VS is stable. Safety precautions is maintained. Bed at low position, brakes locked, side rails upX2 and call light is within reach. Will endorse to morning nurse for TI.
--- NOTE | 2018-12-25 06:40 | NUR ---
RN medsurg notes Manually enter Zosyn 3.375 g IV piggyback. Received Zosyn from Charge nurse LASHON Jose overrode Zosyn 3.375 g IV piggyback.
[2018-12-25 07:13] LABS: BASOPHILS # (AUTO) 0.1 /CMM (0.0-0.2); EOSINOPHILS % (AUTO) 4.5 % (0.0-6.0); HEMATOCRIT 37 % (39-51); HEMOGLOBIN 12.4 g/dL (13.5-17.5); LYMPHOCYTES # (AUTO) 1.6 /CMM (0.8-4.8); LYMPHOCYTES % (AUTO) 26.8 % (20.0-44.0); MEAN CORPUSCULAR HGB CONC 34 g/dl (31.0-36.0); MEAN CORPUSCULAR VOLUME 94 fL (80-96); MONOCYTES # (AUTO) 0.8 /CMM (0.1-1.30); MONOCYTES % (AUTO) 12.9 % (2.0-12.0); NEUTROPHILS # (AUTO) 3.3 /CMM (1.8-8.9); NEUTROPHILS % (AUTO) 54.8 % (43.0-81.0); PLATELET COUNT (AUTO) 217 /CMM (150-450); RED BLOOD CELL COUNT(AUTO) 3.91 MIL/uL (4.5-6.0); WHITE BLOOD COUNT (AUTO) 6.1 K/uL (4.3-11.0)
--- NOTE | 2018-12-25 07:35 | NUR ---
MS RN OPENING NOTES RECEIVED PATIENT IN BED SLEEPING COMFORTABLY. PATIENT IN NO ACUTE DISTRESS. NO SOB NOTED. NO FACIAL GRIMACING NOTED. PATIENT BREATHING IS EVEN AND UNLABORED.PATIENT BED IS LOCKED AND IN LOWEST POSITION. CALL LIGHT WITHIN REACH. WILL CONTINUE TO MONITOR.
[2018-12-25 07:47] LABS: CREATININE 0.6 mg/dL (0.6-1.3)
[2018-12-25 07:56] LABS: CALCIUM, SERUM 8.4 mg/dL (8.5-10.1); MAGNESIUM 1.8 mg/dL (1.8-2.4); PHOSPHORUS 3.5 mg/dL (2.5-4.9)
[2018-12-25 07:58] LABS: THYROID STIMULATING HORMONE 3.445 uIU/mL (0.358-3.74)
[2018-12-25 08:00] VITALS: BP 127/84
[2018-12-25] MEDS: HEPARIN SODIUM, PORCINE 5000 UNITS/1 ML VIAL SQ SCH ×2 (08:54→20:49)
[2018-12-25] MEDS: MORPHINE SULFATE INJ 2 MG/ML DISP.SYRIN IV PRN ×3 (09:23→20:32)
[2018-12-25 16:00] VITALS: BP 132/82
--- NOTE | 2018-12-25 18:26 | NUR ---
MS RN CLOSING NOTE PATIENT IN BED RESTING COMFORTABLY. PATIENT IN NO ACUTE DISTRESS. NO SOB NOTED. PATIENT BREATHING IS EVEN AND UNLABORED. PATIENT BREATHING ON ROOM AIR SATURATING >95% SPO2. PATIENT IN NO PAIN AT THIS TIME. NO FACIAL GRIMACING NOTED. PATIENT KEPT CLEAN, DRY, AND COMFORTABLE. PERFORMED WOUND CARE ON RIGHT KNEE WITH KERLIX AND GAUZE. ALL NURSING NEEDS MET. SAFETY PRECAUTIONS IN PLACE. PATIENT BED IS LOCKED AND IN LOWEST POSITION. CALL LIGHT WITHIN REACH. WILL ENDORSE CARE TO PM SHIFT FOR TI.
--- NOTE | 2018-12-25 19:42 | NUR ---
RN NOTES RECEIVED PATIENT AWAKE IN BED RESTING COMFORTABLY. PATIENT IN NO ACUTE DISTRESS. NO SOB NOTED. PATIENT BREATHING IS EVEN AND UNLABORED. PATIENT BREATHING ON ROOM AIR SATURATING >95% SPO2. PATIENT IN NO PAIN AT THIS TIME. NO FACIAL GRIMACING NOTED. PATIENT KEPT CLEAN, DRY, AND COMFORTABLE. ALL NURSING NEEDS MET. SAFETY PRECAUTIONS IN PLACE. PATIENT BED IS LOCKED AND IN LOWEST POSITION. CALL LIGHT WITHIN REACH. WILL MONITOR ACCORDINGLY.
[2018-12-25 20:00] VITALS: BP 108/64
[2018-12-25 20:07] VITALS: BP 108/64
[2018-12-26] MEDS: VANCOMYCIN 1 GM in IV D5W 250 ML IV SCH ×3 (04:16→20:10)
[2018-12-26] MEDS: PIPERACILLIN /TAZOBACTAM 3.375 G in IV D5W 50 ML IV SCH ×4 (05:44→23:59)
[2018-12-26] MEDS: MORPHINE SULFATE INJ 2 MG/ML DISP.SYRIN IV PRN ×3 (05:44→20:10)
--- NOTE | 2018-12-26 06:23 | NUR ---
RN NOTES ALL NEEDS ATTENDED AND MET, ABLE TO REST AND SLEPT AT INTERVALS, DUE MEDS GIVEN, SAFETY MEASURES IN PLACE, CALL LIGHT WITH IN EASY REACH, WILL ENDORSE TO AM NURSE FOR CONTINUITY OF CARE, FOR WOUND CONSULT, KEPT RIGHT KNEE CELLULITIS CLEAN DRY, COVER WITH GAUZE AND KERLIX, WILL ENDORSE TO AM NURSE.
[2018-12-26 06:33] LABS: BASOPHILS # (AUTO) 0.1 /CMM (0.0-0.2); BASOPHILS % (AUTO) 1.4 % (0.0-2.0); EOSINOPHILS % (AUTO) 5.2 % (0.0-6.0); HEMATOCRIT 37 % (39-51); HEMOGLOBIN 12.5 g/dL (13.5-17.5); LYMPHOCYTES # (AUTO) 1.3 /CMM (0.8-4.8); LYMPHOCYTES % (AUTO) 31.1 % (20.0-44.0); MEAN CORPUSCULAR HGB CONC 34 g/dl (31.0-36.0); MEAN CORPUSCULAR VOLUME 95 fL (80-96); MONOCYTES # (AUTO) 0.4 /CMM (0.1-1.30); MONOCYTES % (AUTO) 10.3 % (2.0-12.0); NEUTROPHILS # (AUTO) 2.2 /CMM (1.8-8.9); PLATELET COUNT (AUTO) 194 /CMM (150-450); WHITE BLOOD COUNT (AUTO) 4.3 K/uL (4.3-11.0)
[2018-12-26 06:34] LABS: CALCIUM, SERUM 8.6 mg/dL (8.5-10.1); CREATININE 0.5 mg/dL (0.6-1.3); MAGNESIUM 1.8 mg/dL (1.8-2.4); PHOSPHORUS 4.1 mg/dL (2.5-4.9); POTASSIUM 4.4 mmol/L (3.5-5.1)
--- NOTE | 2018-12-26 07:40 | NUR ---
MS/RN NOTE THE PATIENT IS RECEIVED IN BED. ALERT AND ORIENTED X4. DENIES PAIN AT THIS TIME. RESPIRATION REGULAR AND UNLABORED. IN ROOM AIR AND DENIES SOB. PATIENT IN NO APPARENT DISTRESS. LEFT HAND G 24 PATENT AND SALINE LOCKED. BED LOW AND LOCKED. SIDE RAILS UP X2. CALL LIGHT WITHIN REACH. WILL CONTINUE TO MONITOR.
[2018-12-26 08:00] VITALS: BP 132/86
[2018-12-26] MEDS: HEPARIN SODIUM, PORCINE 5000 UNITS/1 ML VIAL SQ SCH ×2 (08:46→20:12)
[2018-12-26] MEDS: HYDROCODONE/APAP 5/325MG 1 EACH TABLET PO PRN ×3 (08:57→23:59)
[2018-12-26] MEDS: LACTOBACILLUS RHAMNOSUS GG 1 EACH CAP.SPRINK PO SCH ×2 (09:15→16:13)
--- NOTE | 2018-12-26 15:36 | NUR ---
MS/RN NOTE DR MCINTYRE IS ASKED TO RECONCILE HOME MEDICATIONS. WILL CONTINUE TO FOLLOW UP.
[2018-12-26 16:00] VITALS: BP 140/96
[2018-12-26] MEDS ORDERED: Medication Not On Formulary EA (Cranberry Extract (Cranberry) 425 MG) PO SCH (17:00)
[2018-12-26] MEDS: hydrALAZINE HCL 50 MG TABLET PO SCH (17:33)
[2018-12-26] MEDS: PROSOURCE / PROSTAT (PYXIS) 30 ML UDC PO SCH (17:35)
--- NOTE | 2018-12-26 18:48 | NUR ---
MS/RN NOTE THE PATIENT ALERT AND ORIENTED X4. DENIES PAIN AT THIS TIME. RESPIRATION REGULAR AND UNLABORED. IN ROOM AIR AND SATURATION IS AT 96%. LEFT HAND G 24 PATENT AND SALINE LOCKED. BED LOW AND LOCKED. SIDE RAILS UP X2. CALL LIGHT WITHIN REACH. WILL ENDORSE TO SUPERVISORY AIDE.
--- NOTE | 2018-12-26 19:20 | NUR ---
MS/RN NOTES RECEIVED PT. SITTING UP IN CHAIR. PT. IS AWAKE, ALERT AND ORIENTED X4. BREATHING EVEN AND UNLABORED ON ROOM AIR. NO SOB, RESPIRATORY DISTRESS OR COMPLAINTS OF PAIN NOTED AT THIS TIME. PT. WITH LEFT HAND 24 GAUGE IV SALINE LOCK PRESENT, PATENT AND INTACT. PT. EDUCATED ON CALLING FOR ASSISTANCE BEFORE AMBULATING. PT. VERBALIZED UNDERSTANDING. PT. CALL LIGHT WITHIN REACH. WILL CONTINUE TO MONITOR.
[2018-12-26 20:00] VITALS: BP 148/85
[2018-12-27] MEDS: MORPHINE SULFATE INJ 2 MG/ML DISP.SYRIN IV PRN ×4 (02:32→20:15)
[2018-12-27] MEDS: VANCOMYCIN 1 GM in IV D5W 250 ML IV SCH ×3 (04:19→20:18)
[2018-12-27] MEDS: PIPERACILLIN /TAZOBACTAM 3.375 G in IV D5W 50 ML IV SCH ×4 (06:19→23:24)
[2018-12-27 06:22] LABS: BASOPHILS # (AUTO) 0.1 /CMM (0.0-0.2); BASOPHILS % (AUTO) 1.6 % (0.0-2.0); EOSINOPHILS % (AUTO) 4.7 % (0.0-6.0); HEMATOCRIT 37 % (39-51); HEMOGLOBIN 12.5 g/dL (13.5-17.5); LYMPHOCYTES # (AUTO) 1.2 /CMM (0.8-4.8); LYMPHOCYTES % (AUTO) 31.2 % (20.0-44.0); MEAN CORPUSCULAR HGB CONC 34 g/dl (31.0-36.0); MEAN CORPUSCULAR VOLUME 94 fL (80-96); MONOCYTES # (AUTO) 0.4 /CMM (0.1-1.30); MONOCYTES % (AUTO) 10.6 % (2.0-12.0); NEUTROPHILS # (AUTO) 2.1 /CMM (1.8-8.9); NEUTROPHILS % (AUTO) 51.9 % (43.0-81.0); PLATELET COUNT (AUTO) 217 /CMM (150-450); RED BLOOD CELL COUNT(AUTO) 3.91 MIL/uL (4.5-6.0)
--- NOTE | 2018-12-27 06:31 | NUR ---
MS/RN NOTES PT. IS LYING IN BED RESTING. BREATHING EVEN AND UNLABORED ON ROOM AIR. NO SOB, RESPIRATORY DISTRESS OR COMPLAINTS OF PAIN NOTED AT THIS TIME. PT. WITH LEFT FOREARM 22 GAUGE IV SALINE LOCK PRESENT, PATENT AND INTACT. ALL PT. NEEDS MET. BED LOCKED AND IN LOWEST POSITION, SIDE RAILS UP X3, CALL LIGHT WITHIN REACH, WILL ENDORSE TO DAYSHIFT NURSE FOR CONTINUITY OF CARE.
[2018-12-27 06:50] LABS: CALCIUM, SERUM 8.9 mg/dL (8.5-10.1); CREATININE 0.6 mg/dL (0.6-1.3); PHOSPHORUS 4.5 mg/dL (2.5-4.9); POTASSIUM 3.8 mmol/L (3.5-5.1)
--- NOTE | 2018-12-27 07:11 | NUR ---
MS RN OPENING NOTES RECEIVED PT AWAKE IN BED IN NO ACUTE SIGNS OF DISTRESS. A/O X4. VERBALLY RESPONSIVE, DENIES PAIN OR ANY DISCOMFORTS AT THIS TIME. ON ROOM AIR, BREATHING EVEN AND UNLABORED. IV ACCESS ON RFA G#22 INTACT AND PATENT. SAFETY MEASURES IN PLACE. BED IN LOW, LOCKED POSITION WITH SR UP X2. CALL LIGHT WITHIN REACH. WILL CONTINUE TO MONITOR.
[2018-12-27 08:00] VITALS: BP 128/87
[2018-12-27] MEDS: MULTIVIT W/MINERALS 1 TAB TABLET PO SCH (08:52)
[2018-12-27] MEDS: ZINC SULFATE 220 MG CAPSULE PO SCH (08:53)
[2018-12-27] MEDS: VIT B CMPLX 3/FA/VIT C/BIOTIN 1 TAB TABLET PO SCH (08:53)
[2018-12-27] MEDS: hydrALAZINE HCL 50 MG TABLET PO SCH ×2 (08:53→16:50)
[2018-12-27] MEDS: AMLODIPINE BESYLATE 10 MG TABLET PO SCH (08:53)
[2018-12-27] MEDS: LACTOBACILLUS RHAMNOSUS GG 1 EACH CAP.SPRINK PO SCH ×2 (08:53→16:49)
[2018-12-27] MEDS: FERROUS SULFATE (325 MG) 325 MG/TAB TABLET PO SCH (08:53)
[2018-12-27] MEDS: ASCORBIC ACID 500 MG TABLET PO SCH ×2 (08:53→16:49)
[2018-12-27] MEDS: HEPARIN SODIUM, PORCINE 5000 UNITS/1 ML VIAL SQ SCH ×2 (08:56→20:16)
[2018-12-27] MEDS: PROSOURCE / PROSTAT (PYXIS) 30 ML UDC PO SCH ×2 (08:56→16:50)
[2018-12-27] MEDS ORDERED: Medication Not On Formulary EA (Cran/Vitc/Mannose/Inulin/Brom (Uti-Stat Liquid) 30 MG) PO SCH (09:00)
--- NOTE | 2018-12-27 10:54 | NUR ---
RN NOTES/PAIN MANAGEMENT PT C/O ACHING AND BURNING PAIN ON RIGHT KNEE. PRN MORPHINE 2MG/1ML IVP ADMINISTERED AT 1052. WILL CONTINUE TO MONITOR AND REASSESS PT.
[2018-12-27] MEDS: HYDROCODONE/APAP 5/325MG 1 EACH TABLET PO PRN (13:12)
--- NOTE | 2018-12-27 13:14 | NUR ---
RN NOTES/PAIN MANAGEMENT PT COMPLAINED OF ACHING AND BURNING PAIN ON RIGHT KNEE WITH SCALE OF 6/10. PRN NORCO 5/325 ADMINISTERED AT 1312. WILL CONTINUE TO MONITOR AND REASSESS PT.
--- NOTE | 2018-12-27 15:57 | NUR ---
RN NOTES/PAIN MANAGEMENT PT SITTING ON CHAIR BY BEDSIDE AND COMPLAINED OF ACHING AND BURNING PAIN ON RIGHT KNEE. PRN MORPHINE 2MG/1ML IVP ADMINISTERED AT 1555. WILL CONTINUE TO MONITOR AND REASSESS PT.
[2018-12-27 16:00] VITALS: BP 132/92
--- NOTE | 2018-12-27 18:43 | NUR ---
MS RN CLOSING NOTES PT RESTING IN CHAIR BY BEDSIDE AT THIS TIME. A/O X4 AND ABLE TO MAKE NEEDS KNOWN. ON ROOM AIR, TOLERATING WELL WITH NO ACUTE RESPIRATORY DISTRESS NOTED THROUGHOUT THE DAY. IV ACCESS ON RFA G#22 INTACT, PATENT AND FLUSHES WELL. ALL NEEDS AND CARE ATTENDED WELL. SAFETY MEASURES KEPT IN PLACE. CALL LIGHT WITHIN EASY REACH OF PT. WILL ENDORSE TO COURTROOM REPORTER NURSE FOR TI
--- NOTE | 2018-12-27 19:51 | NUR ---
MS RN NOTES PATIENT AWAKE IN BED WITH NO DISTRESS NOTED. CALL LIGHT WITHIN REACH. DRESSING ON RIGHT KNEE CLEAN, INTACT, AND PATENT. PERIPHERAL LINE INTACT AND PATENT. NO C/O PAIN OR DISCOMFORT. ENCOURAGED USE OF CALL LIGHT FOR ASSISTANCE AND VERBALIZED GOOD UNDERSTANDING. ROOM FREE OF CLUTTER AND BELONGINGS KEPT NEAR BEDSIDE. WILL CONTINUE TO MONITOR.
[2018-12-27 19:55] VITALS: BP 151/84
[2018-12-28] MEDS: MORPHINE SULFATE INJ 2 MG/ML DISP.SYRIN IV PRN ×5 (01:16→21:36)
[2018-12-28] MEDS: HYDROCODONE/APAP 5/325MG 1 EACH TABLET PO PRN ×3 (03:12→14:35)
[2018-12-28] MEDS: VANCOMYCIN HCL 0.75 GM in IV D5W 250 ML IV SCH ×3 (04:42→20:35)
[2018-12-28] MEDS: PIPERACILLIN /TAZOBACTAM 3.375 G in IV D5W 50 ML IV SCH ×4 (06:06→23:11)
[2018-12-28 06:50] LABS: CALCIUM, SERUM 8.9 mg/dL (8.5-10.1); CREATININE 0.6 mg/dL (0.6-1.3); PHOSPHORUS 3.9 mg/dL (2.5-4.9); POTASSIUM 3.5 mmol/L (3.5-5.1)
--- NOTE | 2018-12-28 06:56 | NUR ---
MS RN NOTES PATIENT ASLEEP IN BED WITH NO DISTRESS NOTED. CALL LIGHT WITHIN REACH. ALL DUE MEDS GIVEN ORDERED WITH NO ASE NOTED. NO FURTHER C/O PAIN OR DISCOMFORT. PERIPHERAL LINE INTACT AND PATENT. WOUND CARE RENDERED TO RIGHT KNEE AND TOLERATED WELL. BED IN LOW LOCK SETTING. ROOM FREE OF CLUTTER AND BELONGINGS KEPT NEAR BEDSIDE. WILL ENDORSE TO ONCOMING SHIFT.
[2018-12-28 07:03] LABS: BASOPHILS # (AUTO) 0.1 /CMM (0.0-0.2); BASOPHILS % (AUTO) 1.3 % (0.0-2.0); EOSINOPHILS % (AUTO) 3.2 % (0.0-6.0); HEMATOCRIT 38 % (39-51); HEMOGLOBIN 12.8 g/dL (13.5-17.5); LYMPHOCYTES # (AUTO) 1.3 /CMM (0.8-4.8); LYMPHOCYTES % (AUTO) 27.9 % (20.0-44.0); MEAN CORPUSCULAR HGB CONC 34 g/dl (31.0-36.0); MEAN CORPUSCULAR VOLUME 93 fL (80-96); MONOCYTES # (AUTO) 0.7 /CMM (0.1-1.30); MONOCYTES % (AUTO) 13.6 % (2.0-12.0); NEUTROPHILS # (AUTO) 2.6 /CMM (1.8-8.9); PLATELET COUNT (AUTO) 234 /CMM (150-450); RED BLOOD CELL COUNT(AUTO) 4.08 MIL/uL (4.5-6.0); WHITE BLOOD COUNT (AUTO) 4.8 K/uL (4.3-11.0)
[2018-12-28 08:00] VITALS: BP_SYST 127; BP_SYST 137; BP_DIAS 72; BP_DIAS 83
[2018-12-28] MEDS: FERROUS SULFATE (325 MG) 325 MG/TAB TABLET PO SCH (08:14)
[2018-12-28] MEDS: VIT B CMPLX 3/FA/VIT C/BIOTIN 1 TAB TABLET PO SCH (08:14)
[2018-12-28] MEDS: MULTIVIT W/MINERALS 1 TAB TABLET PO SCH (08:14)
[2018-12-28] MEDS: ZINC SULFATE 220 MG CAPSULE PO SCH (08:14)
[2018-12-28] MEDS: hydrALAZINE HCL 50 MG TABLET PO SCH ×2 (08:14→16:43)
[2018-12-28] MEDS: ASCORBIC ACID 500 MG TABLET PO SCH ×2 (08:14→16:43)
[2018-12-28] MEDS: LACTOBACILLUS RHAMNOSUS GG 1 EACH CAP.SPRINK PO SCH ×2 (08:14→16:43)
[2018-12-28] MEDS: AMLODIPINE BESYLATE 10 MG TABLET PO SCH (08:15)
[2018-12-28] MEDS: PROSOURCE / PROSTAT (PYXIS) 30 ML UDC PO SCH ×2 (08:17→16:44)
[2018-12-28] MEDS: HEPARIN SODIUM, PORCINE 5000 UNITS/1 ML VIAL SQ SCH ×3 (08:22→20:41)
--- NOTE | 2018-12-28 11:10 | NUR ---
WOUND CARE CONSULT: PT PRESENTS WITH DRY AND INTACT DRESSING TO RT KNEE. PT UNDER CARE OF SURGEON. DEFER TO SURGICAL TEAM AT THIS TIME FOR WOUND TREATMENT PLAN. WILL SEE PRN. PT IS INDEPENDENT WITH BED/CHAIR MOBILITY AND IS CONTINENT. NO RASH NOTED TO BACK.
[2018-12-28 16:00] VITALS: BP_SYST 127; BP_SYST 129; BP_DIAS 76; BP_DIAS 84
--- NOTE | 2018-12-28 18:41 | NUR ---
patient resting in room, -ambulatory with lula walker. Patient remains on room air , with no distress noted. All needs attended, dressing changed and warm pack applied as directed. IV line itact and patent. Pain prn meds given as directed. Will endorse to next shift for TI
[2018-12-28 20:00] VITALS: BP 136/85
--- NOTE | 2018-12-28 21:45 | NUR ---
MS RN NOTES RECEIVED PT ON BED. A/O X 4. ON ROOM AIR NO RESPIRATORY DISTRESS NOTED. IV ACCESS ON LFA G22 SALINE LOCK. PATENT AND INTACT. HEAD OF BED ELEVATED. SIDE RAILS UP. CALL LIGHT WITHIN REACH. BED ALARM ON. WILL CONTINUE TO MONITOR PT CLOSELY.
[2018-12-29] MEDS: HYDROCODONE/APAP 5/325MG 1 EACH TABLET PO PRN ×3 (03:16→13:31)
[2018-12-29] MEDS: VANCOMYCIN HCL 0.75 GM in IV D5W 250 ML IV SCH ×2 (04:00→14:23)
[2018-12-29] MEDS: MORPHINE SULFATE INJ 2 MG/ML DISP.SYRIN IV PRN ×2 (04:16→11:13)
[2018-12-29] MEDS: PIPERACILLIN /TAZOBACTAM 3.375 G in IV D5W 50 ML IV SCH ×2 (05:02→12:41)
--- NOTE | 2018-12-29 06:12 | NUR ---
ms rn notes no acute changes noted during the shift. provided comfort and safety. will endorse to the am nurse for continuity of care.
[2018-12-29 06:15] LABS: BASOPHILS # (AUTO) 0.1 /CMM (0.0-0.2); BASOPHILS % (AUTO) 1.8 % (0.0-2.0); EOSINOPHILS % (AUTO) 4.2 % (0.0-6.0); HEMATOCRIT 38 % (39-51); LYMPHOCYTES # (AUTO) 1.4 /CMM (0.8-4.8); MEAN CORPUSCULAR HGB CONC 34 g/dl (31.0-36.0); MEAN CORPUSCULAR VOLUME 94 fL (80-96); MONOCYTES # (AUTO) 0.6 /CMM (0.1-1.30); MONOCYTES % (AUTO) 15.1 % (2.0-12.0); NEUTROPHILS # (AUTO) 1.8 /CMM (1.8-8.9); NEUTROPHILS % (AUTO) 43.9 % (43.0-81.0); PLATELET COUNT (AUTO) 229 /CMM (150-450); RED BLOOD CELL COUNT(AUTO) 4.11 MIL/uL (4.5-6.0); WHITE BLOOD COUNT (AUTO) 4.1 K/uL (4.3-11.0)
[2018-12-29 06:46] LABS: CREATININE 0.6 mg/dL (0.6-1.3); MAGNESIUM 2.1 mg/dL (1.8-2.4); PHOSPHORUS 3.8 mg/dL (2.5-4.9); POTASSIUM 3.6 mmol/L (3.5-5.1)
[2018-12-29 07:30] VITALS: BP 124/70
--- NOTE | 2018-12-29 08:00 | NUR ---
MS RN RECEIVED ON BED, AWAKE,ALERT,ORIENTED X4,NOT IN ANY FORM OF DISTRESS, RESPIRATIONS EVEN AND UNLABORED. NO SOB NOTED. WILL MONITOR PATIENT'S CONDITION.
--- NOTE | 2018-12-29 08:30 | NUR ---
MS OATES BREAKFAST SERVED,DUE MEDS GIVEN,TOLERATED WELL.
[2018-12-29] MEDS: LACTOBACILLUS RHAMNOSUS GG 1 EACH CAP.SPRINK PO SCH (08:58)
[2018-12-29] MEDS: ZINC SULFATE 220 MG CAPSULE PO SCH (08:58)
[2018-12-29] MEDS: ASCORBIC ACID 500 MG TABLET PO SCH (08:58)
[2018-12-29] MEDS: VIT B CMPLX 3/FA/VIT C/BIOTIN 1 TAB TABLET PO SCH (08:58)
[2018-12-29] MEDS: MULTIVIT W/MINERALS 1 TAB TABLET PO SCH (08:59)
[2018-12-29] MEDS: hydrALAZINE HCL 50 MG TABLET PO SCH (08:59)
[2018-12-29] MEDS: FERROUS SULFATE (325 MG) 325 MG/TAB TABLET PO SCH (08:59)
[2018-12-29] MEDS: AMLODIPINE BESYLATE 10 MG TABLET PO SCH (09:03)
[2018-12-29] MEDS: PROSOURCE / PROSTAT (PYXIS) 30 ML UDC PO SCH (09:03)
[2018-12-29] MEDS: HEPARIN SODIUM, PORCINE 5000 UNITS/1 ML VIAL SQ SCH (09:07)
[2018-12-29] MEDS ORDERED: LIDOCAINE 1% INJ 50 ML MDV IJ ONE ×2 (11:00)
--- NOTE | 2018-12-29 11:00 | NUR ---
MS RN I AND D WAS OF RIGHT KNEE WAS DONE BY ABDIFATAH Aguilar/ ORDERS MADE AND CARRIED OUT.
--- NOTE | 2018-12-29 15:37 | NUR ---
MS RN PATIENT IS READY, WAITING FOR TRANSPORTATION, REFUSED TO TAKE PICTURES OF RIGHT KNEE, REFUSED TO OPEN IT SINCE ABDIFATAH PEREZ JUST DID I AND D.
[2018-12-29 16:30] VITALS: BP 95/62
--- NOTE | 2018-12-29 16:50 | NUR ---
MS RN PATIENT TRANSFERRED TO [facility],REPORT GIVEN TO AML RN,ALL NEEDS ATTENDED.
== END 2018-12-29 17:15 | DRG 383 ==
LOC: ER 17:41 → MED 20:33
PROVIDERS: ADMIT Student in an Organized Health Care Education/Training Program; ATTEND Nurse Practitioner Acute Care
DX: L03.115 Cellulitis of right lower limb (principal); D68.59 Other primary thrombophilia; E44.1 Mild protein-calorie malnutrition; I69.351 Hemiplegia and hemiparesis following cerebral infarction affecting right dominant side; E83.42 Hypomagnesemia; L02.425 Furuncle of right lower limb; N39.0 Urinary tract infection, site not specified; D64.9 Anemia, unspecified; E87.6 Hypokalemia; Z74.09 Other reduced mobility; Z86.19 Personal history of other infectious and parasitic diseases; E78.5 Hyperlipidemia, unspecified; E11.9 Type 2 diabetes mellitus without complications; D63.8 Anemia in other chronic diseases classified elsewhere; I10 Essential (primary) hypertension; K21.9 Gastro-esophageal reflux disease without esophagitis; M71.161 Other infective bursitis, right knee; Z96.641 Presence of right artificial hip joint; Z87.891 Personal history of nicotine dependence; Z86.14 Personal history of Methicillin resistant Staphylococcus aureus infection; Z83.3 Family history of diabetes mellitus; Z82.49 Family history of ischemic heart disease and other diseases of the circulatory system; Z79.899 Other long term (current) drug therapy; K80.20 Calculus of gallbladder without cholecystitis without obstruction; I70.0 Atherosclerosis of aorta; J98.11 Atelectasis; M85.80 Other specified disorders of bone density and structure, unspecified site
CPT/HCPCS: 36415; 71045-TC; 73564-TC; 80048-TC; 80061-TC; 80076-TC; 80202-TC; 83605-TC; 83735-TC; 84100-TC; 84443-TC; 85025-TC; 85730-TC; 87040-TC; 87070-TC; 87081-TC; 87186-TC; 97116-TC; 97530-TC; A6403; G0378; J1644; J2270; J2405; J2543; J3370; J3490; J7030; J7040; J7060

== ENCOUNTER 2020-03-23 14:36 | Emergency (ER) | payer OTHER ==
[~2020-03-23] VITALS: Ht 170.2 cm; Wt 77.6 kg
[~2020-03-23 14:36] MED LIST changes: -ACET325C5 PO; +AMIN30LI2 PO; +BISA10SU11 RC; -CEFA1PIG IV; +DOCU-141 PO; +FERR325T23 PO; -LACT1CAP61 PO; -LEVE500T9 PO; +MAG30ORA PO; +MAGN400O6 PO; +MULT-447 PO; +NA P133E RC; +SULF1TAB48 PO; -VANC1FRO2 IV; +VITA1TAB56 PO; +ZINC1CAP2 PO
--- NOTE | 2020-03-23 14:55 | NUR ---
DARBY CRONIN CALLED FOR PLACEMENT ASSISTANCE,HE BECAME HOMELESS WHEN PANDEMIC BROKE OUT ACCORDING TO HIM
--- NOTE | 2020-03-23 14:56 | NUR ---
DR PLUNKETT WITH PATIENT FOR EVAL
--- NOTE | 2020-03-23 16:27 | NUR ---
SW met with the patient in the ED. Patient is currently intoxicated. Patient reports that he has been homeless for 6 months. Patient reports that he was at an assisted living facility and the patient reported leaving AMA. Patient is unable to provide more concrete information at this time. Patient did however provide verbal consent to contact son and sister on face sheet. Plan: SW to follow-up with family regarding this patient.
--- NOTE | 2020-03-23 16:30 | NUR ---
SW attempted to speak with patient's sister Kelly . SW unable to speak with Kelly, SW left voicemail with call back number.
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
--- NOTE | 2020-03-23 16:35 | NUR ---
NIDHI followed up with [facility] [address], [place] [address] regarding patient's status at the facility. NIDHI spoke with Maida and Maida informed this NIDHI that the patient left AMA on 02/24/2020. Maida informed this NIDHI that the patient was referred to [facility] [address] [place] [address] and was accepted by Trixie . Plan: NIDHI to follow-up with Trixie at [facility] .
--- NOTE | 2020-03-23 17:28 | NUR ---
Dinner served ate 100%. Emily COMPUTER AIDED DESIGN DESIGNER looked at placement options for this patient and was informed that pt was referred to [facility] [phone]. sporting goods salesperson: Trixie [phone]. per Ryanne (medical office supervisor) "he is NOT on the list for tonight. Call back tomorrow and look for baccarat manager of the day"
--- NOTE | 2020-03-23 19:00 | NUR ---
Nurse Cirilo Olivera w/LASHON Sargent for Continuity of Care
--- NOTE | 2020-03-23 19:20 | NUR ---
PT ASLEEP BUT EASILY AROUSABLE BY MECHANICAL STIMULI. PT RESPIRATIONS EVEN AND UNLABORED ON RA W/ NAD NOTED. PT CONNECTED TO THE BIOLOGICAL CHEMIST AND POX. WILL CONTINUE TO MONITOR PT.CALL LIGHT WITHIN REACH
--- NOTE | 2020-03-23 19:22 | NUR ---
SUMMER ASSOCIATE AT BEDSIDE FOR BLOOD DRAW
[2020-03-23 19:35] LABS: BASOPHILS # (AUTO) 0.1 /CMM (0.0-0.2); BASOPHILS % (AUTO) 1.4 % (0.0-2.0); EOSINOPHILS % (AUTO) 1.3 % (0.0-6.0); HEMATOCRIT 41 % (39-51); HEMOGLOBIN 13.8 g/dL (13.5-17.5); LYMPHOCYTES % (AUTO) 33.2 % (20.0-44.0); MEAN CORPUSCULAR HGB CONC 34 g/dl (31.0-36.0); MEAN CORPUSCULAR VOLUME 95 fL (80-96); MONOCYTES # (AUTO) 0.8 /CMM (0.1-1.30); MONOCYTES % (AUTO) 13.7 % (2.0-12.0); NEUTROPHILS # (AUTO) 3.1 /CMM (1.8-8.9); NEUTROPHILS % (AUTO) 50.4 % (43.0-81.0); PLATELET COUNT (AUTO) 188 /CMM (150-450); RED BLOOD CELL COUNT(AUTO) 4.33 MIL/uL (4.5-6.0); WHITE BLOOD COUNT (AUTO) 6.1 K/uL (4.3-11.0)
[2020-03-23 19:52] LABS: CALCIUM, SERUM 8.4 mg/dL (8.5-10.1); CARBON DIOXIDE 25 mmol/L (21-32); CHLORIDE 110 mmol/L (98-107); CREATININE 0.5 mg/dL (0.6-1.3); GLUCOSE 109 mg/dL (74-106); POTASSIUM 3.4 mmol/L (3.5-5.1); SODIUM SERUM 147 mmol/L (136-145); UREA NITROGEN, BLOOD 11 mg/dL (7-18)
[2020-03-23 19:59] LABS: ALANINE AMINOTRANSFERASE 352 U/L (12-78); ALBUMIN 3.3 g/dL (3.4-5.0); ALCOHOL, BLOOD 207 mg/dL (0-0); ALKALINE PHOSPHATASE 111 U/L (46-116); ASPARTATE AMINOTRANSFERASE 220 U/L (15-37); BILIRUBIN,DIRECT 0.3 mg/dL (0.0-0.2); BILIRUBIN,TOTAL 0.6 mg/dL (0.2-1.0); TOTAL PROTEIN, SERUM 7.5 g/dL (6.4-8.2)
[2020-03-23 20:04] LABS: ACETAMINOPHEN 0 ug/ml (10-30)
--- NOTE | 2020-03-23 20:12 | NUR ---
PT UNABLE TO PROVIDE URINE SAMPLE AT THIS TIME. DR PLUNKETT MADE AWARE.
--- NOTE | 2020-03-23 20:15 | NUR ---
PER DR PLUNKETT, URINE SAMPLE IS NOT NECESSARY.
--- NOTE | 2020-03-23 23:01 | NUR ---
Patient discharged to home in stable condition. Written and verbal after care instructions given. Patient verbalizes understanding of instruction. Pt wheeled out of the E.D. vss. Denies pain.
[2020-03-24 00:35] VITALS: BP 111/66
== END 2020-03-24 00:37 | disposition home or self-care (01) ==
LOC: ER 14:40
DX: S40.811A Abrasion of right upper arm, initial encounter (principal); F19.10 Other psychoactive substance abuse, uncomplicated; R74.01 Elevation of levels of liver transaminase levels; F10.129 Alcohol abuse with intoxication, unspecified; I10 Essential (primary) hypertension; R53.1 Weakness; Y90.7 Blood alcohol level of 200-239 mg/100 ml; Z86.73 Personal history of transient ischemic attack (TIA), and cerebral infarction without residual deficits; Z86.19 Personal history of other infectious and parasitic diseases; Z96.649 Presence of unspecified artificial hip joint; Z60.2 Problems related to living alone; Z79.899 Other long term (current) drug therapy; X58.XXXA Exposure to other specified factors, initial encounter; Y93.89 Activity, other specified; Y92.89 Other specified places as the place of occurrence of the external cause; Y99.8 Other external cause status
CPT/HCPCS: 36415; 80048-TC; 80076-TC; 85025-TC; G0480

== ENCOUNTER 2020-03-25 15:42 | Emergency (ER) | payer OTHER ==
[~2020-03-25] VITALS: Ht 167.6 cm; Wt 79.4 kg
[2020-03-25] MEDS ORDERED: TDAP [DIPH/PERTUSSIS/TET] 0.5 ML VIAL IM ONE ×2 (17:00→22:38)
--- NOTE | 2020-03-25 19:31 | NUR ---
PT BIB EMS to ER; bystander called 911 after he fell off his wheelchair; admits ETOH. Pt on monitor and pulse ox. vss. no acute distress noted. will continue to monitor.
--- NOTE | 2020-03-26 00:14 | NUR ---
Patient discharged to home in stable condition. Written and verbal after care instructions given. Patient verbalizes understanding of instruction. Pt refused to sign discharge paperwork and homeless waiver.
[2020-03-26 00:52] VITALS: BP 121/78
== END 2020-03-26 00:14 | disposition home or self-care (01) ==
LOC: ER 15:44
DX: S00.03XA Contusion of scalp, initial encounter (principal); F10.129 Alcohol abuse with intoxication, unspecified; I10 Essential (primary) hypertension; Y90.9 Presence of alcohol in blood, level not specified; Z59.0 Homelessness; Z86.73 Personal history of transient ischemic attack (TIA), and cerebral infarction without residual deficits; Z86.19 Personal history of other infectious and parasitic diseases; Z96.649 Presence of unspecified artificial hip joint; Z60.2 Problems related to living alone; Z79.899 Other long term (current) drug therapy; W18.09XA Striking against other object with subsequent fall, initial encounter; Y93.89 Activity, other specified; Y92.89 Other specified places as the place of occurrence of the external cause; Y99.8 Other external cause status
CPT/HCPCS: 70450-TC; 90715

== ENCOUNTER → 2020-04-04 | Emergency (ER) | payer OTHER ==
[~2020-04-04] VITALS: Ht 175.3 cm; Wt 81.6 kg
[2020-04-04 15:09] VITALS: BP 110/72
--- NOTE | 2020-04-04 15:13 | NUR ---
To ER bed 13, awaiting for MD to see
--- NOTE | 2020-04-04 15:13 | NUR ---
Brought by EMS to the emergency department, complaining of right ankle pain after a ground-level fall
--- NOTE | 2020-04-04 16:22 | NUR ---
KIKO FRENCHW CALLED FOR ASSISTANCE, PATIENT IS ASKING FOR A WHEEL CHAIR
--- NOTE | 2020-04-04 16:38 | NUR ---
This SW spoke with case management team regarding referral for a wheelchair. Case Management team will follow-up with ED Staff for a safe a proper discharge.
== END | disposition home or self-care (01) ==
LOC: ER 15:07
DX: I63.9 Cerebral infarction, unspecified (principal); M25.571 Pain in right ankle and joints of right foot; I10 Essential (primary) hypertension; D64.9 Anemia, unspecified; F17.200 Nicotine dependence, unspecified, uncomplicated; Z59.0 Homelessness; Z79.899 Other long term (current) drug therapy; W18.39XA Other fall on same level, initial encounter; Y93.89 Activity, other specified; Y92.89 Other specified places as the place of occurrence of the external cause; Y99.8 Other external cause status

== ENCOUNTER 2020-11-01 10:30 | Emergency (ER) | payer MEDICARE, OTHER ==
[~2020-11-01] VITALS: Ht 165.1 cm; Wt 90.7 kg
[2020-11-01 11:27] LABS: BASOPHILS # (AUTO) 0.1 K/uL (0.0-0.2); BASOPHILS % (AUTO) 1.3 % (0.0-2.0); HEMATOCRIT 37 % (39-51); HEMOGLOBIN 12.5 g/dL (13.5-17.5); LYMPHOCYTES # (AUTO) 1.3 K/uL (0.8-4.8); LYMPHOCYTES % (AUTO) 30.6 % (20.0-44.0); MEAN CORPUSCULAR HGB CONC 34 g/dl (31.0-36.0); MEAN CORPUSCULAR VOLUME 95 fL (80-96); MONOCYTES # (AUTO) 0.6 K/uL (0.1-1.30); MONOCYTES % (AUTO) 15.8 % (2.0-12.0); NEUTROPHILS % (AUTO) 48.3 % (43.0-81.0); PLATELET COUNT (AUTO) 127 K/uL (150-450); RED BLOOD CELL COUNT(AUTO) 3.92 MIL/uL (4.5-6.0); WHITE BLOOD COUNT (AUTO) 4.1 K/uL (4.3-11.0)
[2020-11-01] MEDS: IV NS 0.9% 500 ML BAG IV ONE (11:27)
--- NOTE | 2020-11-01 11:30 | NUR ---
Patient unkempt/dirty/defecated and urinated on self. Washed and cleaned by Jennifer Gamez
[2020-11-01 11:37] LABS: CALCIUM, SERUM 7.7 mg/dL (8.5-10.1); CREATININE 0.6 mg/dL (0.6-1.3); POTASSIUM 3.8 mmol/L (3.5-5.1)
[2020-11-01 11:43] LABS: ALBUMIN 3.1 g/dL (3.4-5.0); BILIRUBIN,DIRECT 0.2 mg/dL (0.0-0.2); BILIRUBIN,TOTAL 0.9 mg/dL (0.2-1.0); TOTAL PROTEIN, SERUM 7.2 g/dL (6.4-8.2)
--- NOTE | 2020-11-01 12:25 | NUR ---
ASSUMED CARE. ADOLPH CRAWFORD60 "Bystander called from streets Homeless/ETOH/NOT able to care for self/swelling on BLE. PT AAOX3, VSS. RR EVEN & UNLABORED. DENIES ANY DISCOMFORT AT THIS TIME. PLACED ON GEOSPATIAL DEVELOPER, SR. WILL CONT TO MONITOR.
--- NOTE | 2020-11-01 13:24 | NUR ---
Patient is resting comfortably in bed with eyes closed. Easily aroused. VSS
--- NOTE | 2020-11-01 14:20 | NUR ---
SS consult requested for ETOH. SW will be pt. when he has sobered up and is interviewable.
--- NOTE | 2020-11-01 15:42 | NUR ---
Patient is resting comfortably in bed with eyes closed. Easily aroused. VSS
--- NOTE | 2020-11-01 16:30 | NUR ---
"SS consult: SS consult completed for ETOH & Homelessness. The pt. is a 55 year old male. Pt. states he has been homeless for 2 months and received GR and food stamps. Per pt. he drinks ETOH every day (vodka & beer). Pt. denies SI/HI and denies hallucinations. Pt. states he is wheelchair bound. SW notified MD. Pt. signed homeless waiver & it was placed in the chart. SW provided homeless resources and pt. accepted them. Pt. stated he will use resources for intermediate placement: Substance Abuse resources provided included: [facility] Substance Abuse Self-Helpline ([facility]) ; CRI -HELP [address] [facility] [id number] ; [facility] [address] [facility] [address] ; [facility] Rehabilitation [facility] [address] [facility] [address] ; [facility] [phone] ; [facility] [address] [facility] [address] ; [facility]ically [facility] 901 [facility] [phone] ; [facility] Substance Abuse Helpline([facility] ; [facility] ; [facility] [place]; C[facility]Help [place]; [facility] [address]avo Galan; [facility]; [facility] [place]; [facility] [place]; [facility] [employer] [place]; Alcoholics Anonymous -SFV; Mz-Rgmp-Fbaqrji ; Marijuana Anonymous -SFV; Narcotics Anonymous www.na.org; Year-round shelters: [facility] [place] [address] [place] [address] ; [facility] [address] [place] [address]; [facility] [address] [facility] [address] Winter Shelters: Wagner Men[place]aca [place] Provider: [facility] [place] Address: [address], [address] # of Beds: 47 Population Served: [facility] 6 | [facility] Soledad Herzog [place] Provider: [facility] Last Address: [address], [address] # of Beds: 66 Population Served: [facility] [employer] [place] Provider: First to Serve Address: [address] [facility], [address] # of Beds: 56 Population Served: [facility] [place] Provider: SS/Ms. [facility] Address: [address] [facility], [address] # of Beds: 49 Population Served: [facility] 8 | [facility] Provider: First to Serve Address: [address] [facility], [address] # of Beds: 37 Population Served: [facility] Hygiene: [facility] [place] [facility]: [address] ; [place] [facility] [address] [facility] ; [facility] [address] . Food Resources: [place] [facility] at [facility]- 2[address] [facility]; Meet Each Need with Dignity ([facility]) [address] [address] [place]; [facility] 4[address] [facility] [[email or web address]]; [facility] [address]. Mental Health resources provided: [facility] [address] [place], [place] [address] ; [facility] [address] [facility] [address], [place], [place] [phone] ; [facility] [address] [place], [place] [phone] ; [facility] [address] [place], [place] [address] Healthcare Clinics: [facility] [address] [facility], [address] [place]. [place] ; [facility] [address] [facility] [address] [place] [address]; [facility] [address] [facility] [place] [address] [phone] Counseling--[facility] [address] [facility], [place] [address] (Specializes in in-depth psychotherapy for emotional distress: anxiety, depression, interpersonal conflicts, life transitions, childhood abuse) [facility] [address] [place], [place] [phone] (Assist with solving problem marital difficulties, separation & divorce, aging parents, & grief, chronic & terminal illness) [facility] [address] [place] [address] (Deal with loss & grief, anxiety, marital difficulties) Homebound/Mental Health Services [address] [facility], [address] [place], [place] [phone] (Provide in-home mental services to people who are incapable of leaving their homes) Organization for Needs of the Elderly Senior Service/Resource Center [address] [facility]. [place], [place] [phone] [facility] [address]. [place], [place] [address] PSYCHIATRIC OUTPATIENT SERVICES [facility] Partial Hospitalization and Intensive Outpatient Program (Managed Care and [place] Only)[address] [address]. [facility] [phone] [facility] Partial Hospitalization and Outpatient [id number] [place] [address]. [address] [place], [place] [phone] [facility] Partial Hospitalization and Outpatient [id number]. [place], [place] [phone] [facility] [id number]. [address] [place], [place] [phone] [facility] Partial Hospitalization and Outpatient Rhwtoli22723 [facility] Chavo GalanWE[place], [phone] "
--- NOTE | 2020-11-01 17:29 | NUR ---
Patient is resting comfortably in bed with eyes closed. Easily aroused. VSS
--- NOTE | 2020-11-01 22:23 | NUR ---
PATIENT IS SLEEPING. EASILY AROUSABLE THROUGH VERBAL STIMULI. CONNECTED TO THE MONITOR. BREATHING EVENLY AND UNLABORED ON ROOM AIR. SIDE RAILS ARE UP FOR SAFETY. CALL LIGHT IS WITHIN REACH. SITTER AT BEDSIDE. WILL CONTINUE TO MONITOR CLOSELY.
--- NOTE | 2020-11-01 23:05 | NUR ---
ATTEMPTED TO DISCHARGE PATIENT. PATIENT STATED HE DOES NOT HAVE A WHEEL CHAIR. STATED EMS LEFT HIS WHEEL CHAIR.
[2020-11-01] MEDS ORDERED: CHLO25CA22 PO (23:41)
[2020-11-02] MEDS ORDERED: CHLORDIAZEPOXIDE HCL 25 MG CAPSULE ONE ×2 (00:17→15:58)
[2020-11-02] MEDS: CHLORDIAZEPOXIDE HCL 25 MG CAPSULE PO ONE ×2 (00:22→16:01)
--- NOTE | 2020-11-02 02:34 | NUR ---
PATIENT IS ASLEEP. AROUSABLE THROUGH VOICE. CONNECTED TO THE MONITOR. BREATHING EVENLY AND UNLABORED ON ROOM AIR. SIDE RAILS ARE UP FOR SAFETY. CALL LIGHT IS WITHIN REACH. SITTER AT BEDSIDE. WILL CONTINUE TO MONITOR CLOSELY.
--- NOTE | 2020-11-02 06:33 | NUR ---
PATIENT HAD URINATED ON HIMSELF. PATIENT IS CLEANED. BED SHEET IS CHANGED.
--- NOTE | 2020-11-02 10:50 | NUR ---
Postpartum Nurse note: NIDHI contacted residential case manager, Kiran [phone] to discuss placement options for appropriate and safe discharge plan. RONALD Beck to follow up with NIDHI.
--- NOTE | 2020-11-02 14:14 | NUR ---
CASE MANAGEMENT CALLED, WAITING ON AUTHORIZATION FOR W/C AND PLACEMENT
--- NOTE | 2020-11-02 14:50 | NUR ---
Artist Model note: SW attempts for placement: [facility] for [facility] and faxed clinicals to,
--- NOTE | 2020-11-02 15:20 | NUR ---
Patient Liaison note: NIDHI spoke to continuous pillowcase cutter Zoie who located a wheelchair for patient. SW notified ED staff.
--- NOTE | 2020-11-02 17:22 | NUR ---
PT PROVIDED W/ NEW WHEELCHAIR. FEELING MUCH BETTER. STABLE VITALS. MEDICALLY CLEARED. DISCHARGED IN STABLE CONDITION.
[2020-11-02 17:23] VITALS: BP 115/60
--- NOTE | 2020-11-02 17:23 | NUR ---
Patient discharged to home in stable condition. Written and verbal after care instructions given. Patient verbalizes understanding of instruction.
== END 2020-11-02 17:24 | disposition home or self-care (01) ==
LOC: ER 10:34
DX: F10.239 Alcohol dependence with withdrawal, unspecified (principal); F10.229 Alcohol dependence with intoxication, unspecified; I69.351 Hemiplegia and hemiparesis following cerebral infarction affecting right dominant side; Z59.0 Homelessness; I10 Essential (primary) hypertension; Z86.19 Personal history of other infectious and parasitic diseases; Z20.822 Contact with and (suspected) exposure to COVID-19
CPT/HCPCS: 36415; 80048; 80076; 83690; 85025; 87426; 96360; 99285; J7040; C9803

== ENCOUNTER 2020-11-04 11:32 | Emergency (ER) | payer MEDICARE, OTHER ==
[~2020-11-04] VITALS: Ht 175.3 cm; Wt 79.4 kg
[~2020-11-04 11:32] MED LIST changes: -AMIN30LI2 PO; -AMLO10TA4 PO; -ASCO500C18 PO; -BISA10SU11 RC; +CHLO25CA22 PO; -CRAN3875 PO; -CRAN425C6 PO; -DOCU-141 PO; -FERR325T23 PO; -HYDR-4077 PO; -HYDR-4384 PO; -MAG30ORA PO; -MAGN400O6 PO; -METO50TA16 PO; -MULT-447 PO; -NA P133E RC; -SULF1TAB48 PO; -TYL2T MC; -VITA1TAB56 PO; -ZINC1CAP2 PO
[2020-11-04 12:16] VITALS: BP 126/85
--- NOTE | 2020-11-04 13:02 | NUR ---
Pt refusing to be seen "I just want to clean myself and Im out of here- I do NOT want to be seen" Refusing senior care and resources. Wheeled himself out of ED on his own wheelchair
== END 2020-11-04 13:03 | disposition home or self-care (01) ==
LOC: ER 11:32
DX: Z53.21 Procedure and treatment not carried out due to patient leaving prior to being seen by health care provider (principal); I10 Essential (primary) hypertension; D64.9 Anemia, unspecified; Z59.0 Homelessness

== ENCOUNTER 2020-11-13 22:21 | Emergency (ER) | payer MEDICARE, OTHER ==
[~2020-11-13] VITALS: Ht 175.3 cm; Wt 81.6 kg
--- NOTE | 2020-11-13 22:31 | NUR ---
PATIENT BIBRA 878 WITH C/O RIGHT SHOULDER PAIN S/P FALL FROM WHEELCHAIR. PATIENT IS A/O X 3, RR EVEN AND UNLABORED NO SIGNS OF SOB NOTED. PATIENT CONNCETED TO CARDAIC MONITOR AND POX.
[2020-11-13] MEDS ORDERED: IBUPROFEN 600 MG TABLET ONE (23:01)
[2020-11-13] MEDS: IBUPROFEN 600 MG TABLET PO ONE (23:08)
--- NOTE | 2020-11-14 00:27 | NUR ---
PATIENT RETURNED FROM CT
[2020-11-14 04:16] VITALS: BP 129/64
--- NOTE | 2020-11-14 04:16 | NUR ---
Patient discharged to home in stable condition. Written and verbal after care instructions given. Patient verbalizes understanding of instruction.
== END 2020-11-14 04:17 | disposition home or self-care (01) ==
LOC: ER 22:24
DX: S42.212A Unspecified displaced fracture of surgical neck of left humerus, initial encounter for closed fracture (principal); S02.2XXA Fracture of nasal bones, initial encounter for closed fracture; F10.129 Alcohol abuse with intoxication, unspecified; R51.9 Headache, unspecified; I10 Essential (primary) hypertension; E11.9 Type 2 diabetes mellitus without complications; F17.200 Nicotine dependence, unspecified, uncomplicated; Y90.9 Presence of alcohol in blood, level not specified; Z86.73 Personal history of transient ischemic attack (TIA), and cerebral infarction without residual deficits; Z86.19 Personal history of other infectious and parasitic diseases; Z59.0 Homelessness; Z79.899 Other long term (current) drug therapy; W18.39XA Other fall on same level, initial encounter; Y93.89 Activity, other specified; Y92.89 Other specified places as the place of occurrence of the external cause; Y99.8 Other external cause status
CPT/HCPCS: 70450-TC; 73030-TC